=== PATIENT | female | born 1980 | race Caucasian/White ===

== ENCOUNTER 2017-10-08 07:13 | Inpatient (IN) | payer BC ==
[2017-10-08] MEDS ORDERED: Ondansetron INJ* 2 MG/ML VIAL IV ONE (08:10)
[2017-10-08] MEDS ORDERED: Insulin REGULAR(*) 1 UNITS UNIT IV ONE (08:10)
[2017-10-08] MEDS ORDERED: Ketorolac INJ* 30 MG/ML 1 ML VIAL IV PUSH ONE (08:17)
--- NOTE | 2017-10-08 08:17 | ED ---
HPI Diabetic - HPI Summary HPI Summary: This is boo Sanchez documenting for attending Geraldine Barrientos M.D. Patient is a 37 y/o F w/ c/o left sided back/flank pain that radiates to LLQ. Her , Thierry is in the room. Patient is a type 2 diabetic requiring insulin and she also takes metformin. reports patient had high blood sugar but could not find kit to test. He reports patient felt hot and was sweaty. Patient cannot recall last time she checked blood sugar. She has taken 3 doses of 60 units of Lantus insulin (via pen) between midnight and 0500 today. Back pain started a week ago, radiates to left side in front and into back. In the room, pain is rated 10/10. She also reports nausea and vomiting, with one episode of vomiting last night. She did not see color or general appearance of emesis. Patient denies dysuria and hematuria. Last bowel movement was today. She has had cough for "months". Patient is experiencing mid chest pain as well, which is described as a tightening and is on and off. In room, vitals were 107 was pulse, 108/67 BP, and O2 sat 97. Patient is A1, lost baby 6-8 weeks into . On triage, nothing is noted to aggravate/ alleviate Sx. First day of last normal menstrual cycle was September 24. She denies PMHx of kidney stones. PSHx of cholecystectomy w/ PMHx of pancreatitis and black tongue. Patient drinks alcohol. FMHx of diabetes, both types, is noted. Patient is still nauseous, does not have zofran. Patient reports sun allergy. Hx of bronchitis every year for 8-10 years. Patient takes CBD oil for chronic back pain. Home medications are as follows: Acetaminophen [Tylenol] 975 mg PO BID PRN 10/08/17 [History Confirmed 10/08/17] Ibuprofen TAB* [Motrin TAB* 400 MG] 400 mg PO Q6H PRN 10/08/17 [History Confirmed 10/08/17] NIFEdipine [Nifedipine ER] 60 mg PO DAILY 10/08/17 [History Confirmed 10/08/17] Naproxen Sodium [Midol Extended Relief] 220 mg PO DAILY PRN 10/08/17 [History Confirmed 10/08/17] I, Dr. Barrientos, personally performed the services described in this documentation as scribed in my presence and it is both accurate and complete. - History Of Current Complaint Chief Complaint: EDDiabeticProb Time Seen by Provider: 10/08/17 07:52 Hx Obtained From: Patient, Family/Workers Compensation Administrator - partially contributes Hx Last Menstrual Period: just ended yesterday Onset/Duration: Lasting Hours - hot and sweaty today at midnight, Lasting Days - patient reports vomiting one day ago, Lasting Weeks - back pain onset was a week ago; reports having a cough for "months", Still Present - left back pain, nausea Timing: Weeks - one episode of vomiting yesterday; intermittent chest pain; cough for "months", back pain for a week; hot and sweaty today at midnight Severity Initially: Moderate Severity Currently: Severe - 10/10 in room Associated Signs & Symptoms: Nausea, Vomiting - once last night Related History: DM II, Insulin Requiring - Allergies/Home Medications Allergies/Adverse Reactions: Allergies Allergy/AdvReac Type Severity Reaction Status Date / Time SUN Allergy Rash Uncoded 10/08/17 07:18 Home Medications: Home Medications Acetaminophen [Tylenol] 975 mg PO BID PRN 10/08/17 [History Confirmed 10/08/17] Ibuprofen TAB* [Motrin TAB* 400 MG] 400 mg PO Q6H PRN 10/08/17 [History Confirmed 10/08/17] NIFEdipine [Nifedipine ER] 60 mg PO DAILY 10/08/17 [History Confirmed 10/08/17] Naproxen Sodium [Midol Extended Relief] 220 mg PO DAILY PRN 10/08/17 [History Confirmed 10/08/17] PMH/Surg Hx/FS Hx/Imm Hx Endocrine/Hematology History: Reports: Hx Diabetes, Hx Anemia - OK NOW, ANEMIA WHEN YOUNGER R/T PERIODS Denies: Hx Thyroid Disease Cardiovascular History: Reports: Hx Hypertension Denies: Other Cardiovascular Problems/Disorders Respiratory History: Reports: Hx Sleep Apnea - HAVING STUDY Denies: Hx Asthma, Hx Chronic Obstructive Pulmonary Disease (COPD) GI History: Reports: Other GI Disorders - pancreatitis Denies: Hx Ulcer History: Denies: Other Problems/Disorders Sensory History: Reports: Hx Contacts or Glasses - CONTACTS AND GLASSES Denies: Hx Hearing Aid Opthamlomology History: Reports: Hx Contacts or Glasses - CONTACTS AND GLASSES EENT History: Reports: Other - black tongue Neurological History: Reports: Hx Headaches - CLUSTER HEADACHES PER MONTH, Hx Migraine - 1 PER WEEK - Surgical History Surgery Procedure, Year, and Place: 2012 cholecystectomy, [facility] Hx Anesthesia Reactions: No Infectious Disease History: No Infectious Disease History: Denies: Hx Clostridium Difficile, Hx Hepatitis, Hx Human Immunodeficiency Virus (HIV), Hx of Known/Suspected MRSA, Hx Shingles, Hx Tuberculosis, Hx Known/ Suspected VRE, Hx Known/Suspected VRSA, History Other Infectious Disease, Traveled Outside the [place] in Last 30 Days - Family History Known Family History: Positive: Diabetes - both types of diabetes - Social History Lives: With Family Alcohol Use: Occasionally Substance Use Type: Reports: None Smoking Status (MU): Never Smoked Tobacco Review of Systems Positive: Skin Diaphoresis, Other - reports patient felt hot Positive: Chest Pain - on and off Positive: Cough - experienced cough for "months" Positive: Vomiting - once yesterday , Nausea Positive: other - NEGATIVE: dysuria, hematuria, constipation Positive: Other - left sided back pain radiating into back and around to front left side Skin: Negative Neurological: Negative Psychological: Normal All Other Systems Reviewed And Are Negative: Yes Physical Exam - Summary Physical Exam Summary: Appearance: Ill-appearing, moderate pain distress, obese Skin: Warm, color reflects adequate perfusion, dry Head: Normal Head/Face inspection, atraumatic Eyes: Conjunctiva clear ENT: Normal inspection Neck: Supple, no nodes, no JVD Respiratory: Lungs clear, normal breath sounds, no respiratory distress Cardio: RRR, No murmur, pulses normal, brisk capillary refill Abdomen: Soft, tender LLQ, no guarding, no rebound Bowel sounds: Present Musculoskeletal: Strength Intact/ROM intact, no calf tenderness, no edema, tender left flank Psychological: Normal Neuro: Alert, muscle tone normal, no focal deficit Triage Information Reviewed: Yes Vital Signs On Initial Exam: Initial Vitals Temp Pulse Resp BP Pulse Ox 97.2 F 103 20 93/53 97 10/08/17 07:15 10/08/17 07:15 10/08/17 07:15 10/08/17 07:15 10/08/17 07:15 Vital Signs Reviewed: Yes Diagnostics - Vital Signs Vital Signs Temp Pulse Resp BP Pulse Ox 10/08/17 07:26 96 89/66 95 10/08/17 07:25 98 93 10/08/17 07:15 97.2 F 103 20 93/53 97 - Laboratory Lab Results: Lab Results 10/08/17 Range/Units 07:32 POC Glucose (mg/dL) 266 H (70-100) mg/dL Result Diagrams: 10/09/17 08:01 10/09/17 08:01 Lab Statement: Any lab studies that have been ordered have been reviewed, and results considered in the medical decision making process. - Radiology CXR Xray Interpretation: Positive (See Comments) Radiology Interpretation Completed By: Radiologist - PULMONARY VASCULAR CONGESTION. THIS REPORT WAS REVIEWED BY ED PHYSICIAN. - CT CT abd/pel CT Interpretation: Positive (See Comments) CT Interpretation Completed By: Radiologist - IMPRESSION: 1. NO HYDRONEPHROSIS OR NEPHROLITHIASIS. 2. THERE IS A LOBULATED MASS OF THE LEFT HEMIPELVIS MEASURING UP TO 8.6 CM IN SIZE. THE DIFFERENTIAL INCLUDES OVARIAN NEOPLASM. THIS IS INCOMPLETELY CHARACTERIZED WITH NONCONTRAST CT. RECOMMEND FURTHER EVALUATION WITH ULTRASOUND OF THE PELVIS AND/OR CONTRAST-ENHANCED MRI OF THE PELVIS. - Ultrasound No standard instances Ultrasound Interpretation: Positive (See Comments) Ultrasound Interpretation Completed By: Radiologist - transvag/pelvic US IMPRESSION: AGAIN NOTED IS A COMPLEX CYSTIC MASS OF THE LEFT HEMIPELVIS MEASURING UP TO 10.1 CM IN SIZE CORRESPONDING TO THE CT FINDING. THE DIFFERENTIAL STILL INCLUDES LEFT OVARIAN NEOPLASM. RECOMMEND FURTHER EVALUATION WITH CONTRAST-ENHANCED MRI OF THE PELVIS. THIS REPORT WAS REVIEWED BY ED PHYSICIAN. - EKG 0839 Cardiac Rate: NL - Rate of 96 BPM. EKG Rhythm: Sinus Rhythm EKG Interpretation: nl AVIVCT, nl QTC, nl axis, no acute changes EKG Comparison: Other - compared with 12/22/13 EKG, no significant change since previous Re-Evaluation - Re-Evaluation First Eval Re-Evaluation Time: 09:34 Change: Worse Comment: Pt had blood glucose of 312 by FS. No change in status. Will administer insulin [address] pending. Second Eval Re-Evaluation Time: 09:45 Comment: lacatate of 2.4 is noted Third Eval Re-Evaluation Time: 11:20 Change: Unchanged Comment: still with LLQ pain, pt alert, discussed CT results, ovarian mass. Pt states hx ovarian cyst in past, resolved. Pelvic US ordered, morphine for pain. Dr. Delatorre to admit.SEPSIS REASSESSMENT: Skin well perfused, cap refill less than 2 seconds. Leg lift shows good perfusion. BP 107/53, P 93 O2 sat 95% . heart S1S2 lungs clear. Diabetic Course/Dx - Course Assessment/Plan: Patient is a 37 y/o F w/ c/o left sided back pain. Patient is a type 2 diabetic who takes insulin and metformin. , Thierry, reports patient had high blood sugar but could not find kit to test. He reports patient felt hot and was sweaty. Patient cannot recall last time she checked blood sugar. She has taken 3 doses of 60 units of Lantus between midnight and 0500 today. Back pain started a week ago, radiates to left side in front and into back. In the room, pain is rated 10/10. She also reports nausea and vomiting, with one episode of vomiting last night. She did not see appearance of emesis. Patient denies dysuria and hematuria. Last bowel movement was today. She has had cough for "months". Patient is experiencing mid chest pain as well, which is described as a tightening and is on and off. In room, vitals were 107 was pulse, 108/67 BP, and O2 sat 97. Patient is A1, lost baby 6-8 weeks into . First day of last normal menstrual cycle was September 24. She denies PMHx of kidney stones. PSHx of cholecystectomy w/ PMHx of pancreatitis and black tongue. Patient drinks alcohol. FMHx of diabetes, both types, is noted. Patient is still nauseous, does not have zofran. CXR, Ct abd/pel, and US transvag/abdomen impressions are listed above. Pt was started on sepsis protocol with return results of wbc and lactate, with IV fluids to total 30cc/kg , after initial 2 L NS given for hyperglycemia. Pt given zosyn 3.375g for poss intraabdominal source. Urine revealed wbc's and rbc's but neg nitrates and bacteria absent. Pt is afebrile in the ED. Pt is dx'd with sepsis, diabetes in poor control, left flank and LLQ abd pain, pelvic mass. Labs showed wbc 25K, initial lactate 2.4, glucose 312. CT and US show pelvic mass. Pt is admitted to Dr. Warner. - Diagnoses Differential Dx: Diabetic Ketoacidosis, Hyperglycemia, Sepsis Provider Diagnoses: Sepsis, Poorly controlled diabetes mellitus, Elevated lactic acid level, Pelvic mass in female - Physician Notifications Discussed Care Of Patient With: Josiane Warner Time Discussed With Above Provider: 09:43 Instructed by Provider To: Other - Dr. Warner was consulted at 09 on patient' s case with identification of sepsis. She recommends waiting on CT results before making a decision regarding ICU vs floor. 11:13 -- discussed case with Dr. Warner. She will order US for patient and accepts patient for admission. - Critical Care Time Critical Care Time: 30-74 min - 30 mins, evaluation of DM with hyperglycemia, sepsis Discharge - Sign-Out/Discharge Documenting (check all that apply): Patient Departure - admit - Discharge Plan Condition: Stable Disposition: ADMITTED TO [facility] - Billing Disposition and Condition Condition: STABLE Disposition: Admitted to [facility]
[2017-10-08 08:39] LABS: Hematocrit 37 % (35-47); Hemoglobin 12.4 g/dl (12.0-16.0); Mean Corpuscular HGB Conc 33 g/dl (31-36); Mean Corpuscular Hemoglobin 29 pg (27-31); Mean Corpuscular Volume 87 fL (80-97); Mean Platelet Volume 7.4 um3 (7.4-10.4); Platelet Count 420 10^3/ul (150-450); Red Blood Count 4.24 10^6/ul (4.00-5.40); Red Cell Distribution Width 13 % (10.5-15)
[2017-10-08] MEDS: NS 0.9% 1000 ML* 2,000 ML IV ONE (08:42)
[2017-10-08 08:56] LABS: INR 1.2 (0.77-1.02)
[2017-10-08 08:58] LABS: Urine Appearance Cloudy; Urine Blood Negative (Negative); Urine Color Amber; Urine Ketones Negative (Negative); Urine Protein 2+(100 mg/dL) (Negative); Urine Red Blood Cell 1+(3-5/hpf) (Absent); Urine Specific Gravity 1.035 (1.010-1.030); Urine Urobilinogen Positive (Negative); Urine White Blood Cell 3+(>20/hpf) (Absent)
[2017-10-08 09:01] LABS: EGFR Non-African American 69.2 (>60)
[2017-10-08 09:11] LABS: ABS Basophils 0 10^3/ul (0-0.2); Monocytes % 1 % (0-7)
[2017-10-08 09:14] LABS: ABS Neutrophils 24.1 10^3/ul (1.5-7.7)
--- NOTE | 2017-10-08 09:20 | RAD ---
HISTORY: DM, cough COMPARISONS: October 19, 2011 VIEWS: 1: frontal portable view of the chest at 9:00 AM FINDINGS: LINES AND TUBES: None. CARDIOMEDIASTINAL SILHOUETTE: The cardiomediastinal silhouette is normal for portable technique. PLEURA: The costophrenic angles are sharp. No pleural abnormalities are noted. LUNG PARENCHYMA: There is prominence of the central pulmonary vasculature. ABDOMEN: The upper abdomen is clear. There is no subphrenic gas. BONES AND SOFT TISSUES: No bone or soft tissue abnormalities are noted. IMPRESSION: PULMONARY VASCULAR CONGESTION
[2017-10-08] MEDS ORDERED: Insulin REGULAR(*) 1 UNITS UNIT IV PUSH ONE (09:32)
[2017-10-08] MEDS ORDERED: Morphine INJ* 2 MG/ML 1 ML SYRINGE (TWO MG - NEW SYRINGE VERSION) IV ONE (09:34)
[2017-10-08] MEDS ORDERED: Morphine VIAL* 10 MG/ML 1 ML VIAL ONE (09:38)
[2017-10-08] MEDS ORDERED: Piperacillin/Tazobac ADVAN(*) 3.375 GM in NS 0.9% 100 ML* 100 ML IVPB ONE (09:47)
[2017-10-08] MEDS ORDERED: NS 0.9% 1000 ML*IV.FLUID IV ONE (09:47)
--- NOTE | 2017-10-08 10:26 | RAD ---
CLINICAL HISTORY: left flank COMPARISON: October 19, 2011 TECHNIQUE: Multiple contiguous axial CT scans were obtained of the abdomen and pelvis, without intravenous contrast enhancement. Coronal and sagittal multiplanar reformations are submitted for review. Oral contrast was not administered. FINDINGS: The study is limited by the lack of intravenous contrast. This limits evaluation of the solid organs and vasculature. LUNG BASES: The lung bases are clear. LIVER: The liver is normal in shape, size, contour, and attenuation. BILE DUCTS: There is no intrahepatic or extrahepatic biliary dilatation. GALLBLADDER: The gallbladder is not visualized. Surgical clips are noted in the gallbladder fossa. PANCREAS: The pancreas is normal, without mass or ductal dilatation. SPLEEN: Normal in size and appearance. UPPER GI TRACT: Evaluation of the gastrointestinal tract is limited by incomplete gastric distention. The upper GI tract is unremarkable. SMALL BOWEL AND MESENTERY: The small bowel is normal in contour, course, and caliber. There is no obstruction or dilatation. COLON: The colon is normal in contour, course, caliber. There is no pericolonic inflammatory change. ADRENALS: Normal bilaterally. KIDNEYS: There is a simple cyst of the lower pole of the right kidney. There is no appreciable hydronephrosis or nephrolithiasis. BLADDER: The bladder is collapsed and is not well evaluated. PELVIC ORGANS: There is lobulated mass of the left hemipelvis measuring 8.6 x 7.5 x 8.4 cm in size. AORTA: The aorta is normal. IVC: Unremarkable LYMPH NODES: There is no lymphadenopathy by size criteria. ABDOMINAL WALL: There is no evidence for abdominal wall hernia. BONES AND SOFT TISSUES: Unremarkable OTHER: None IMPRESSION: 1. NO HYDRONEPHROSIS OR NEPHROLITHIASIS. 2. THERE IS A LOBULATED MASS OF THE LEFT HEMIPELVIS MEASURING UP TO 8.6 CM IN SIZE. THE DIFFERENTIAL INCLUDES OVARIAN NEOPLASM. THIS IS INCOMPLETELY CHARACTERIZED WITH NONCONTRAST CT. RECOMMEND FURTHER EVALUATION WITH ULTRASOUND OF THE PELVIS AND/OR CONTRAST-ENHANCED MRI OF THE PELVIS.
[2017-10-08] MEDS ORDERED: HYDROmorphone INJ* 2 MG/ML CARPUJECT SYRINGE IV SLOW PU ONE (11:36)
[2017-10-08] MEDS ORDERED: Morphine VIAL* 10 MG/ML 1 ML VIAL IV PRN (11:41)
[2017-10-08] MEDS ORDERED: HYDROmorphone INJ* 2 MG/ML CARPUJECT SYRINGE IV SLOW PU PRN (11:41)
[2017-10-08] MEDS ORDERED: Dextrose 50% Syringe 50 ML* 25 GM/50 ML SYRINGE IV PUSH PRN (11:45)
[2017-10-08] MEDS ORDERED: Magnesium Sulf 4 GM/100 ML IV* 4,000 MG/100 ML BAG IVPB ONE (11:50)
[2017-10-08] MEDS ORDERED: NS 0.9% 1000 ML* 1,000 ML IV SCH (12:00)
--- NOTE | 2017-10-08 12:34 | RAD ---
HISTORY: left pain, f/u ovarian mass on CT today COMPARISONS: Noncontrast CT dated October 11, 2017 TECHNIQUE: Multiple transverse and longitudinal ultrasound images were obtained of the pelvis using grayscale, color Doppler, and spectral Doppler imaging using the transabdominal transducer. FINDINGS: UTERUS: The uterus measures 10.6 x 4.9 x 4.7 cm. The uterus is normal in shape, size, contour, and echotexture. ENDOMETRIUM: The endometrial stripe is smooth. The endometrium measures 0.9 cm in thickness. CUL-DE-SAC: There is no free fluid within the cul-de-sac. RIGHT OVARY: The right ovary measures 3.8 x 3.2 x 2.4 cm. Normal arterial and venous waveforms are identifiable within the ovary on spectral Doppler imaging. LEFT OVARY: The left ovary measures 10.1 x 7.5 x 7.5 cm. Again noted is a complex cystic lesion of the left hemipelvis corresponding to the CT finding that appears to correspond to the left ovary. Normal arterial and venous waveforms are identifiable within the ovary on spectral Doppler imaging. BLADDER: The bladder is not well visualized. OTHER: None IMPRESSION: AGAIN NOTED IS A COMPLEX CYSTIC MASS OF THE LEFT HEMIPELVIS MEASURING UP TO 10.1 CM IN SIZE CORRESPONDING TO THE CT FINDING. THE DIFFERENTIAL STILL INCLUDES LEFT OVARIAN NEOPLASM. RECOMMEND FURTHER EVALUATION WITH CONTRAST-ENHANCED MRI OF THE PELVIS.
[2017-10-08] MEDS ORDERED: Perflutren Lipid Microsphere* 3 ML VIAL ONE (15:47)
[2017-10-08] MEDS ORDERED: Acetaminophen TAB* 325 MG ONE (16:23)
[2017-10-08] MEDS: Acetaminophen TAB* 325 MG PO PRN ×2 (16:25→23:32)
[2017-10-08] MEDS: HYDROmorphone INJ* 0.5 MG/0.5 ML SYRINGE IV SLOW PU PRN ×2 (16:26→21:15)
[2017-10-08] MEDS: Heparin VIAL(*) 5000 UNITS/ML VIAL (FIVE THOUSAND) SUBCUT SCH ×2 (16:30→21:22)
--- NOTE | 2017-10-08 17:37 | ECHO ---
Patient: FÁTIMA FOX [facility] Rec#: [id number] : 1980 Date: 10/08/2017 Age: 37y Height: 185 cm / 72.8 in Weight: 161 kg / 354.8 lbs Sex: F BSA: 2.7 Room#: [facility] Admit Date#: 10/08/2017 Type: Inpatient Referring: Dominga Wilkerson NP Reading: Jc Everett MD [place] Cutter: Christine Kenyon RN RDCS CC: Chris Queen NP Transthoracic Echocardiogram Indication: CHF, SOB BP: 112/72 HR: 101 Rhythm: Tachycardia Findings History: HTN, DM, sleep apnea, migraines, anemia, morbid obesity. Technical Comments: The study is technically limited due to patient body habitus. Left Ventricle: The left ventricular chamber size is normal. Mild to moderate concentric left ventricular hypertrophy is observed. Global left ventricular wall motion and contractility are within normal limits. Left ventricular systolic function is at the lower limits of normal. The estimated ejection fraction is 50-55%. Normal left ventricular diastolic filling is observed. Left Atrium: The left atrial chamber size is normal. Right Ventricle: The right ventricle is slightly dilated. The right ventricular global systolic function is mildly reduced. Right Atrium: The right atrial cavity size is normal. Aortic Valve: The aortic valve structure is not well visualized. There is no evidence of aortic valve thickening. There is no evidence of aortic regurgitation. There is no evidence of aortic stenosis. Mitral Valve: The mitral valve leaflets are mildly thickened. There is mild mitral regurgitation. There is no evidence of mitral stenosis. Tricuspid Valve: The tricuspid valve leaflets are normal. There is trace tricuspid regurgitation. Unable to estimate the right ventricular systolic pressure. There is no tricuspid stenosis. Pulmonic Valve: The pulmonic valve structure is not well visualized. There is no evidence of pulmonic regurgitation. There is no pulmonic stenosis. Pericardium: There is no significant pericardial effusion. A pericardial fat pad is visualized. Aorta: There is mild dilatation of the ascending aorta. There is no dilatation of the aortic arch. There is mild dilatation of the aortic root. Pulmonary Artery: The main pulmonary artery appears normal. Venous: The venous system is not well visualized. The inferior vena cava is not visualized. Contrast: Definity was used to optimize study. A total of 3 ml of diluted Definity was given IV. Summary: There was not any prior study for comparison. Conclusions Left ventricular systolic function is at the lower limits of normal. Global left ventricular wall motion and contractility are within normal limits. The estimated ejection fraction is 50-55%. There is no evidence of aortic stenosis. There is mild mitral regurgitation. There is trace tricuspid regurgitation. Unable to estimate the right ventricular systolic pressure. There is no significant pericardial effusion. Measurements Name Value Normal Range RVIDd (AP) 2D 3.5 cm (0.9 - 2.6) RVDdMajor (2D) 3.9 cm (2.2 - 4.4) RAd ISD 4CH 4.3 cm (3.4 - 4.9) RA (A4C)W 4.3 cm (2.9 - 4.6) IVSd (2D) 1.4 cm (0.6 - 1) LVPWd (2D) 1.2 cm (0.6 - 1) LVIDd (2D) 5.3 cm (3.6 - 5.4) LVIDs (2D) 3.9 cm - LV FS (2D) 26 % (25 - 45) Aortic Annulus 2.4 cm (1.4 - 2.6) Ao root diameter (2D) 3.8 cm (2.1 - 3.5) Ascending Ao 3.5 cm (2.1 - 3.4) Aortic arch 3 cm (1.8 - 3.4) LA dimension (AP) 2D 3.7 cm (2.3 - 3.8) LAd ISD 4CH 5.1 cm (2.9 - 5.3) LA ISD 4CH W 3.8 cm (2.5 - 4.5) Name Value Normal Range LA ESV BP (A/L) index 18.4 ml/m2 - Name Value Normal Range MV E-wave Vmax 1.1 m/sec - MV deceleration time 218 msec - MV A-wave Vmax 0.88 m/sec - MV E:A ratio 1.3 ratio - LV septal e' Vmax 0.13 m/sec - LV lateral e' Vmax 0.14 m/sec - LV E:e' septal ratio 8.5 ratio - LV E:e' lateral ratio 7.9 ratio - Name Value Normal Range AV Vmax 1.5 m/sec - AV VTI 24.9 cm - AV peak gradient 9 mmHg - AV mean gradient 6 mmHg - LVOT Vmax 1 m/sec - LVOT VTI 18.7 cm - LVOT peak gradient 4 mmHg - LVOT mean gradient 2 mmHg - JADON Vmax 0.98 m/sec - Name Value Normal Range PV Vmax 1 m/sec -
[2017-10-08] MEDS ORDERED: Furosemide IV* 10 MG/ML 2 ML VIAL (20 MG) IV ONE (17:47)
[2017-10-08] MEDS: Insulin LISPRO* 1 UNITS UNIT SUBCUT SCH (18:16)
[2017-10-08] MEDS: Ciprofloxacin 400MG IVPREMIX(* 400 MG/200 ML BAG IVPB SCH (18:18)
--- NOTE | 2017-10-08 19:06 | HP ---
CC: Chris Queen NP* [facility] MEDICINE HISTORY AND PHYSICAL: DATE OF ADMISSION: 10/08/17 PRIMARY CARE PROVIDER: Chris Queen NP ATTENDING PHYSICIAN: Dr. Josiane José* (dictation provided by Dominga Wilkerson NP) . CHIEF COMPLAINT: Left flank pain, malaise, and chills. HISTORY OF PRESENT ILLNESS: Ms. Jovel is a 37-year-old female with a past medical history of type 2 diabetes, on insulin, as well as hypertension, who presents to the hospital today with concern for left flank pain, chills, and malaise. Ms. Jovel states that she has had some discomfort in her left side that was very mild for some time. She is not able to really characterize that for me further. She states that yesterday she suddenly began feeling very unwell. She had chills. She was shaking. She spent the entire day in the bed. Late in the evening, she developed severe left flank pain. She states this is much more severe than any pain that she had had there in the past. She had pain through the evening and this morning when she awoke. She reports that she has had no real dysuria, although she has had some feeling of pressure in her bladder. She thinks she may have been had increased frequency, but nothing significant. She is up to date with Pap smears. Her last menstrual period was September 24. She has irregular and heavy periods with severe cramping throughout her life but does not have a diagnosis of PCOS. She has a history of 1 with miscarriage. In the emergency room, Ms. Jovel had labs, which showed a white blood cell count of 25 with bands of 14. She had glucose of 257, lactic acid of 2.4, magnesium 1.3, and C-reactive protein 113.65. She is afebrile. She is mildly tachycardic with the heart rate running about 100, blood pressure is 110/71. She does report feeling somewhat short of breath at rest and she states that this started yesterday when she would feel shaky and chilled. She would feel like it was difficult for her to breathe. She is not hypoxic. In addition, the patient had urinalysis which is suspicious for urinary tract infection and CT abdomen and pelvis which showed concern for a lobulated mass to the left hemipelvis with possible ovarian neoplasm. PAST MEDICAL/SURGICAL HISTORY: 1. Type 2 diabetes, on insulin. 2. Hypertension. 3. History of gallstone pancreatitis, status post cholecystectomy. MEDICATIONS: 1. Tylenol 975 mg p.o. b.i.d. p.r.n. 2. Ibuprofen 400 mg p.o. q.6 hours p.r.n. 3. Lantus SoloSTAR 50 units subcutaneously at bedtime. 4. Metformin 1000 mg p.o. b.i.d. 5. Naproxen 220 mg p.o. daily p.r.n. 6. Nifedipine 60 mg p.o. daily. ALLERGIES: No known drug allergies. FAMILY HISTORY: The patient states her mother is alive and has type 2 diabetes. Her dad related to bone cancer and had type 1 diabetes. SOCIAL HISTORY: No report of tobacco or alcohol use. The patient has tested positive for cannabis in the emergency room. She states that her , Thierry would be her healthcare proxy. REVIEW OF SYSTEMS: A 14-point review of systems was completed with Ms. Jovel and all of those not mentioned above were negative. PHYSICAL EXAMINATION GENERAL: Ms. Jovel is lying in the bed. She is in no acute distress. Her is at the bedside. VITAL SIGNS: Temperature 97.2, pulse rate 102, respiratory rate 29, O2 saturation 91% on room air, blood pressure 110/71. LUNGS: Clear with no accessory muscle use and good aeration. HEART: S1 and S2. No murmur, rub, or gallop and regular. ABDOMEN: Soft. She is not tender to palpation. EXTREMITIES: No cyanosis or edema. NEUROLOGIC: She is alert. She is oriented x3. She moves all extremities equally. There is no facial asymmetry or focal weakness. Extraocular movements are intact. SKIN: Intact. DIAGNOSTIC STUDIES/LAB DATA: Sodium 135, potassium 3.5, chloride 99, serum bicarbonate 28, BUN 8, creatinine 0.91, glucose 257, lactic acid 2.4, magnesium 1.3, CRP 113.65. Beta hCG is less than 60. WBC 25.0, hemoglobin 12.4, hematocrit 37, platelet count 420, and bands are 14. The patient did have ABG, which showed pH 7.42, PCO2 of 44, PO2 of 39. Her urine shows 2+ leukocyte esterase and 3+ wbc's, no bacteria, no nitrites. Her chest x-ray shows possible concern for a pulmonary vascular congestion with some fullness noted there. The abdomen and pelvis CT shows "there is no hydronephrosis or nephrolithiasis. There is lobulated mass to the left hemipelvis measuring up to 8.6 cm in size. The differential includes ovarian neoplasm and pelvic ultrasound noncontrast enhanced or contrast enhanced MRI of the pelvis is recommended. ASSESSMENT AND PLAN: Ms. Jovel is a 37-year-old female with past medical history of type 2 diabetes and hypertension, who presents to the hospital today with concern for left flank pain, fever, chills, and malaise found to have likely urinary tract infection, but also concerned for a lobulated mass in the left hemipelvis. Our plans are for inpatient admission as expected length of stay would be greater than 2 days for followin. Sepsis with urinary tract infection: The patient has tachycardia and leukocytosis, which qualifies for sepsis. She has a positive urinanalysis though I note that there are no bacteria in her urine, only leuk esterase and WBC. She has a feeling a pressure but no clear dysuria. Her first lactic acid was 2.4, a repeat is pending. She has had blood cultures drawn. Zosyn was started for antibiotic coverage, but I plan to switch over to ciprofloxacin IV. The patient was given almost 7000 mL of IV fluids in the emergency department for sepsis. We will continue with a rate of 75 mL per hour and monitor her breathing status closely. 2. Lobulated mass: This appears to be a ovarian cyst but may be a malignancy. The pelvic ultrasound is underway at this time. We will follow up on results and discuss with the unit educator when these results are available. 3. Type 2 diabetes: The patient will continue on her home Lantus. She states her blood sugar was uncontrolled at home. We will have lispro sliding scale with meals and adjust that as needed based on clinical course. Right now, she is NPO, but will go on for consistent carbohydrate diet when her testing is complete. 4. Hypertension: The patient's blood pressure is running about 110 systolically. I plan to hold nifedipine in the setting of acute illness and resume when blood pressure has stabilized. 5. Code status is full code. 6. Disposition to medical floor. TIME SPENT: Approximately 60 minutes was spent on the admission of this patient , more than half time spent with the patient at the bedside reviewing the events leading up to this hospitalization, performing the physical examination, and reviewing my plan of care. DOMINGA WILKERSON NP [id number]/CPS #: [id number] MTDLoraine
[2017-10-08] MEDS: Morphine INJ* 2 MG/ML 1 ML SYRINGE (TWO MG - NEW SYRINGE VERSION) IV PRN ×2 (19:29→23:32)
[2017-10-08] MEDS ORDERED: Iodixanol* (CONTRAST) 320 MG/ML 100 ML SDV IV SCH (20:16)
--- NOTE | 2017-10-08 21:18 | RAD ---
EXAM: CT Angiography Chest With Intravenous Contrast CLINICAL HISTORY: 37 years old, female; Signs and symptoms; Shortness of breath; Additional info: R/O pe TECHNIQUE: Axial computed tomographic angiography images of the chest with intravenous contrast using pulmonary embolism protocol. 3D and MIP reconstructed images were created and reviewed. Coronal and sagittal reformatted images were created and reviewed. COMPARISON: No relevant prior studies available. FINDINGS: Pulmonary arteries: The exam is slightly limited due to suboptimal opacification of the pulmonary arteries. No intraluminal filling defect or pulmonary embolism is seen. Aorta: No acute findings. No thoracic aortic aneurysm or dissection. Lungs: Unremarkable. No mass. No consolidation. Pleural space: Unremarkable. No significant effusion. No pneumothorax. Heart: Unremarkable. No cardiomegaly. No significant pericardial effusion. No evidence of RV dysfunction. Bones/joints: No acute fracture. No dislocation. Soft tissues: Unremarkable. Lymph nodes: Unremarkable. No enlarged lymph nodes. Liver: Area of inhomogeneous enhancement of the liver on the final image of the axial series is of uncertain significance. The results of this exam were called to Dr. Ravi. IMPRESSION: 1. Limited study, no evidence for pulmonary embolism. 2. Questionable liver abnormality incompletely evaluated on this study. Recommend further evaluation with an MRI of the liver without and with contrast.
[2017-10-08] MEDS: Insulin GLARGINE(*) 1 UNITS UNIT SUBCUT SCH (21:21)
--- NOTE | 2017-10-09 00:15 | PN ---
Progress Note - Progress Note Date of Service: 10/09/17 Note: Paged for concern for clinical status. Patient with my abdominal pain. C/O low back pain and now chest pressure. Appears sedated but ill appearing. diminished breath sounds. Hypoactive bowel sounds. Tenderness with palpation in lower abdomen. Will check labs, CXR, abd xray and EKG. Vitals WNL, febrile currently.
[2017-10-09 01:29] LABS: ABS Basophils 0.1 10^3/ul (0-0.2); ABS Eosinophils 0 10^3/ul (0-0.6); ABS Lymphocytes 0.8 10^3/ul (1.0-4.8); ABS Monocytes 0.8 10^3/ul (0-0.8); ABS Neutrophils 13.4 10^3/ul (1.5-7.7); ABS Nucleated RBC 0 10^3/ul; Eosinophil % 0.1 % (0-6); Hematocrit 35 % (35-47); Hemoglobin 11.7 g/dl (12.0-16.0); Mean Corpuscular HGB Conc 34 g/dl (31-36); Mean Corpuscular Hemoglobin 29 pg (27-31); Mean Corpuscular Volume 88 fL (80-97); Mean Platelet Volume 7.2 um3 (7.4-10.4); Nucleated Red Blood Cells % 0; Platelet Count 337 10^3/ul (150-450); Red Blood Count 3.97 10^6/ul (4.00-5.40); Red Cell Distribution Width 14 % (10.5-15); White Blood Count 15.1 10^3/ul (3.5-10.8)
[2017-10-09 01:46] LABS: EGFR Non-African American 100.2 (>60)
[2017-10-09] MEDS: HYDROmorphone INJ* 0.5 MG/0.5 ML SYRINGE IV SLOW PU PRN ×4 (02:48→21:06)
[2017-10-09] MEDS: Ibuprofen TAB* 600 MG PO PRN ×3 (03:11→20:12)
[2017-10-09] MEDS ORDERED: Furosemide IV* 10 MG/ML VIAL (40 MG) IV ONE (04:09)
[2017-10-09] MEDS ORDERED: Furosemide IV* 10 MG/ML VIAL (40 MG) ONE (04:19)
[2017-10-09] MEDS: Ciprofloxacin 400MG IVPREMIX(* 400 MG/200 ML BAG IVPB SCH (05:17)
[2017-10-09] MEDS: Acetaminophen TAB* 325 MG PO PRN ×2 (05:25→21:02)
[2017-10-09] MEDS: Morphine INJ* 2 MG/ML 1 ML SYRINGE (TWO MG - NEW SYRINGE VERSION) IV PRN ×4 (05:57→23:46)
[2017-10-09] MEDS: Heparin VIAL(*) 5000 UNITS/ML VIAL (FIVE THOUSAND) SUBCUT SCH ×3 (05:57→22:55)
[2017-10-09] MEDS ORDERED: nitroGLYCERIN DRIP* 25,000 MCG/250 ML BTL ONE (06:22)
[2017-10-09] MEDS ORDERED: Vancomycin(*) 1,500 MG in NS 0.9% 250 ML* 250 ML IVPB ONE (06:45)
[2017-10-09] MEDS ORDERED: nitroGLYCERIN DRIP* 25,000 MCG/250 ML BTL IV SCH (07:00)
--- NOTE | 2017-10-09 07:46 | RAD ---
HISTORY: abdominal pain COMPARISONS: None VIEWS: Frontal views of the abdomen. FINDINGS: BOWEL: There is a nonspecific bowel gas pattern, with nondilated small bowel gas noted. CALCULI: There are no abnormal calculi. BONES AND SOFT TISSUES: There are no osseous abnormalities. OTHER FINDINGS: The lung bases are clear. There is no subphrenic gas. Contrast is noted within the bladder. IMPRESSION: NONSPECIFIC BOWEL GAS PATTERN.
--- NOTE | 2017-10-09 07:47 | RAD ---
Indication: Abdominal pain. Chest pressure. Sepsis. Comparison: October 08, 2017 CT. Technique: Supine AP 0056 hours Report: Low lung volumes compared with the prior exams with associated crowding of the pulmonary markings and subsegmental atelectasis. Accounting for the low lung volumes is no compelling alveolar consolidation to favor pneumonia. Grossly clear pleural spaces. Upper normal heart size. Unremarkable central pulmonary vasculature and mediastinal contours accounting for low lung volumes. IMPRESSION: #. Hypoventilated exam with subsegmental atelectasis.
[2017-10-09 08:12] LABS: Hematocrit 35 % (35-47); Hemoglobin 12.1 g/dl (12.0-16.0); Mean Corpuscular HGB Conc 34 g/dl (31-36); Mean Corpuscular Hemoglobin 29 pg (27-31); Mean Corpuscular Volume 86 fL (80-97); Mean Platelet Volume 7.4 um3 (7.4-10.4); Platelet Count 346 10^3/ul (150-450); Red Blood Count 4.12 10^6/ul (4.00-5.40); Red Cell Distribution Width 14 % (10.5-15); White Blood Count 15.9 10^3/ul (3.5-10.8)
[2017-10-09 08:31] LABS: EGFR Non-African American 107.7 (>60)
[2017-10-09 08:34] LABS: ABS Basophils 0.1 10^3/ul (0-0.2); ABS Eosinophils 0 10^3/ul (0-0.6); ABS Lymphocytes 0.8 10^3/ul (1.0-4.8); ABS Monocytes 0.6 10^3/ul (0-0.8); ABS Neutrophils 14.4 10^3/ul (1.5-7.7); ABS Nucleated RBC 0 10^3/ul; Eosinophil % 0 % (0-6); Nucleated Red Blood Cells % 0.1
[2017-10-09] MEDS: Insulin LISPRO* 1 UNITS UNIT SUBCUT SCH ×3 (09:47→18:10)
[2017-10-09] MEDS: KCL 20 MEQ/100 ML IVPREMIX* 20 MEQ/100 ML BAG IV SCH ×2 (09:47→12:06)
--- NOTE | 2017-10-09 11:44 | CONSULT ---
Consult Consult: Consultation Note Critical Care Requesting Physician: Dr Yaritza Eckert Reason for consult: hypoxia, respiratory distress, sepsis Limitations in history/physical: none Date of consult: 10/09/2017 HPI: 37y F w/pmhx of DM2, HTN; comes to ER 10/08 for back pain and abdominal pain , diaphoretic+, associated with nausea/vomiting+. She was initially found to have sepsis, suspected urinary source, started on zosyn, then Cipro for coverage. Imaging of abdomen revealed a left ovarian cystic mass on CT scan. A CTA of chest was done indicating no PE, some question of enhancing lesion in liver. A TTE demonstrated normal LV function but some RV hypokinesis. While on medical floor overnight she developed respiratory distress, suspected to be from volume overload, given Lasix, transferred to ICU for hiflow. She was hypertensive during the distress. Currently she is in ICU, on NIV, comfortable, able to speak. Nausea+, no sob/cp now. No headaches. Tmax 104, with ice packs now and decreasing temp slowly. Abd pain+, back pain+. ROS: negative except for pertinent positives mentioned above. PMHx: DM, anemia, HTN, h/o pancreatitis, h/o cluster headaches/migraines PSHx: cholecystectomy Family History: DM in family Social History: Alcohol-occassionally, Smoking-none, Drug use-none Allergies: Allergies Allergy/AdvReac Type Severity Reaction Status Date / Time SUN Allergy Rash Uncoded 10/08/17 07:18 Home Medications: Lantus Solostar 50 units SUBCUT BEDTIME 12/22/13 [History Confirmed 10/08/17] Metformin HCl ER 1,000 mg PO BID 12/22/13 [History Confirmed 10/08/17] Acetaminophen [Tylenol] 975 mg PO BID PRN 10/08/17 [History Confirmed 10/08/17] Ibuprofen TAB* [Motrin TAB* 400 MG] 400 mg PO Q6H PRN 10/08/17 [History Confirmed 10/08/17] NIFEdipine [Nifedipine ER] 60 mg PO DAILY 10/08/17 [History Confirmed 10/08/17] Naproxen Sodium [Midol Extended Relief] 220 mg PO DAILY PRN 10/08/17 [History Confirmed 10/08/17] Tele: sinus tachy Vitals: Vital Signs Temp 101.8 F 10/09/17 10:01 Pulse 111 10/09/17 10:01 Resp 31 10/09/17 10:01 BP 120/71 10/09/17 10:01 Pulse Ox 97 10/09/17 10:01 Intake & Output 10/08/17 10/09/17 10/09/17 18:59 06:59 18:59 Intake Total 2410 900 Output Total 650 240 Balance 2410 250 -240 Weight 161.025 kg 164 kg Intake: IV Fluids 2100 IVPB 100 200 ABX - CIPROFLOXACIN 200 Mag 100 Oral 210 700 Output: Urine 0 Stark 650 240 Other: Estimated Void Large # Bowel Movements 0 # Voids 1 O2/Vent: NIV 10/5, 40% Infusions: heplock Current Medications: Acetaminophen (Tylenol Tab*) 650 mg PO Q6H PRN PRN Reason: pain/fever Last Admin: 10/09/17 05:25 Dose: 650 mg Dextrose (D50w Syringe 50 Ml*) 12.5 gm IV PUSH .FOR FS < 60 - SS PRN PRN Reason: FS < 60 Heparin Sodium (Porcine) (Heparin Vial(*)) 5,000 units SUBCUT Q8HR [facility] Last Admin: 10/09/17 05:57 Dose: 5,000 units Hydromorphone HCl (Dilaudid Inj*) 1 mg IV SLOW PU Q4H PRN PRN Reason: PAIN Last Admin: 10/09/17 02:48 Dose: 1 mg Ciprofloxacin/Dextrose (Cipro 400 Mg Ivpremix(*)) 400 mg in 200 mls @ 200 mls/ hr IVPB Q12H [facility] Last Admin: 10/09/17 05:17 Dose: 200 mls/hr Nitroglycerin/Dextrose (Nitroglycerin Drip*) 25,000 mcg in 250 mls @ 3 mls/hr IV .(Initial Rate) [facility]; Protocol Last Admin: 10/09/17 06:23 Dose: 3 mls/hr Potassium Chloride (Potassium Chloride 20 Meq/100 Ml Ivpremix*) 20 meq in 100 mls @ 50 mls/hr IV Q2H [facility] Stop: 10/09/17 12:59 Last Admin: 10/09/17 09:47 Dose: 50 mls/hr Ibuprofen (Motrin Tab*) 600 mg PO Q6H PRN PRN Reason: PAIN Last Admin: 10/09/17 09:20 Dose: 600 mg Insulin Glargine (Lantus(*)) 50 units SUBCUT BEDTIME KRISTEN Last Admin: 10/08/17 21:21 Dose: 50 units Insulin Human Lispro (Humalog*) 0 units SUBCUT AC KRISTEN; Protocol Last Admin: 10/09/17 09:47 Dose: Not Given Iodixanol (Visipaque* 320 (Contrast)) 96 ml IV ONCE KRISTEN Stop: 10/10/17 20:15 Morphine Sulfate (Morphine Inj ((Syringe))*) 4 mg IV Q4H PRN PRN Reason: PAIN Last Admin: 10/09/17 08:51 Dose: 4 mg Physical Exam: General: awake, alert, no distress, no diaphoresis, obese Head: normocephalic, atraumatic HEENT: no pallor, no icterus, moist mucous membranes Neck: soft, supple, no jvd, no stridor CVS: tachy, regular, no murmur Resp: bilateral air entry, no rhales, no wheeze, no rhonchi, no acc muscle use Abdomen: soft, mild tenderness on deep palpation, nondistended, bowel sounds present Ext: pulses+, warm, no edema Skin: intact, no breakdown, no dryness Neuro: awake, alert, orientedx3, moving all extremities, no gross focal deficit Labs: Laboratory Results - last 24 hr 10/08/17 10/08/17 10/08/17 08:31 08:31 11:50 WBC RBC Hgb Hct MCV MCH MCHC RDW Plt Count MPV Neut % (Auto) Lymph % (Auto) Williams % (Auto) Eos % (Auto) Baso % (Auto) Absolute Neuts (auto) Absolute Lymphs (auto) Absolute Monos (auto) Absolute Eos (auto) Absolute Basos (auto) Absolute Nucleated RBC Nucleated RBC % ESR 109 H D-Dimer, Quantitative Patient Temperature ABG pH ABG pH (Temp Correct) ABG pCO2 ABG pCO2 (Temp Corrct ABG pO2 ABG pO2 (Temp Correct ABG HCO3 ABG O2 Saturation ABG Base Excess Respiration Rate O2 Delivery Device Ventilator Type Vent Mode FiO2 Inspiratory Time PEEP Pressure Support Pressure Control EPAP IPAP BiPAP Sodium Potassium Chloride Carbon Dioxide Anion Gap BUN Creatinine Est GFR ( Amer) Est GFR (Non-Af Amer) BUN/Creatinine Ratio Glucose POC Glucose (mg/dL) 301 H Lactic Acid Calcium Total Bilirubin AST ALT Alkaline Phosphatase Troponin I Total Protein Albumin Globulin Albumin/Globulin Ratio CA 125 Antigen 25.6 10/08/17 10/08/17 10/08/17 12:14 16:35 18:15 WBC RBC Hgb Hct MCV MCH MCHC RDW Plt Count MPV Neut % (Auto) Lymph % (Auto) Williams % (Auto) Eos % (Auto) Baso % (Auto) Absolute Neuts (auto) Absolute Lymphs (auto) Absolute Monos (auto) Absolute Eos (auto) Absolute Basos (auto) Absolute Nucleated RBC Nucleated RBC % ESR D-Dimer, Quantitative 612 H Patient Temperature ABG pH ABG pH (Temp Correct) ABG pCO2 ABG pCO2 (Temp Corrct ABG pO2 ABG pO2 (Temp Correct ABG HCO3 ABG O2 Saturation ABG Base Excess Respiration Rate O2 Delivery Device Ventilator Type Vent Mode FiO2 Inspiratory Time PEEP Pressure Support Pressure Control EPAP IPAP BiPAP Sodium Potassium Chloride Carbon Dioxide Anion Gap BUN Creatinine Est GFR ( Amer) Est GFR (Non-Af Amer) BUN/Creatinine Ratio Glucose POC Glucose (mg/dL) 231 H Lactic Acid 1.4 Calcium Total Bilirubin AST ALT Alkaline Phosphatase Troponin I Total Protein Albumin Globulin Albumin/Globulin Ratio CA 125 Antigen 10/08/17 10/09/17 10/09/17 20:49 01:23 01:23 WBC 15.1 H RBC 3.97 L Hgb 11.7 L Hct 35 MCV 88 MCH 29 MCHC 34 RDW 14 Plt Count 337 MPV 7.2 L Neut % (Auto) 88.9 H Lymph % (Auto) 5.0 L Williams % (Auto) 5.1 Eos % (Auto) 0.1 Baso % (Auto) 0.9 Absolute Neuts (auto) 13.4 H Absolute Lymphs (auto) 0.8 L Absolute Monos (auto) 0.8 Absolute Eos (auto) 0 Absolute Basos (auto) 0.1 Absolute Nucleated RBC 0 Nucleated RBC % 0 ESR D-Dimer, Quantitative Patient Temperature ABG pH ABG pH (Temp Correct) ABG pCO2 ABG pCO2 (Temp Corrct ABG pO2 ABG pO2 (Temp Correct ABG HCO3 ABG O2 Saturation ABG Base Excess Respiration Rate O2 Delivery Device Ventilator Type Vent Mode FiO2 Inspiratory Time PEEP Pressure Support Pressure Control EPAP IPAP BiPAP Sodium 131 L Potassium 3.7 Chloride 97 L Carbon Dioxide 26 Anion Gap 8 BUN 8 Creatinine 0.66 Est GFR ( Amer) 121.3 Est GFR (Non-Af Amer) 100.2 BUN/Creatinine Ratio 12.1 Glucose 198 H POC Glucose (mg/dL) 147 H Lactic Acid Calcium 7.9 L Total Bilirubin 0.80 AST 21 ALT 13 Alkaline Phosphatase 83 Troponin I 0.01 Total Protein 6.2 L Albumin 2.9 L Globulin 3.3 Albumin/Globulin Ratio 0.9 L CA 125 Antigen 10/09/17 10/09/17 10/09/17 01:23 06:11 07:35 WBC RBC Hgb Hct MCV MCH MCHC RDW Plt Count MPV Neut % (Auto) Lymph % (Auto) Williams % (Auto) Eos % (Auto) Baso % (Auto) Absolute Neuts (auto) Absolute Lymphs (auto) Absolute Monos (auto) Absolute Eos (auto) Absolute Basos (auto) Absolute Nucleated RBC Nucleated RBC % ESR D-Dimer, Quantitative Patient Temperature Not Reportable Not Reportable ABG pH 7.48 H 7.46 H ABG pH (Temp Correct) Not Reportable Not Reportable ABG pCO2 37 37 ABG pCO2 (Temp Corrct Not Reportable Not Reportable ABG pO2 111 H 120 H ABG pO2 (Temp Correct Not Reportable Not Reportable ABG HCO3 28.0 26.8 ABG O2 Saturation 99.8 H 99.5 H ABG Base Excess 4.0 H 2.5 H Respiration Rate 12 O2 Delivery Device bipap Ventilator Type Not Reportable Vent Mode Not Reportable FiO2 45 Inspiratory Time Not Reportable PEEP Not Reportable Pressure Support Not Reportable Pressure Control Not Reportable EPAP 5 5 IPAP [address] Sodium Potassium Chloride Carbon Dioxide Anion Gap BUN Creatinine Est GFR ( Amer) Est GFR (Non-Af Amer) BUN/Creatinine Ratio Glucose POC Glucose (mg/dL) Lactic Acid 0.8 Calcium Total Bilirubin AST ALT Alkaline Phosphatase Troponin I Total Protein Albumin Globulin Albumin/Globulin Ratio CA 125 Antigen 10/09/17 10/09/17 08:01 08:01 WBC 15.9 H RBC 4.12 Hgb 12.1 Hct 35 MCV 86 MCH 29 MCHC 34 RDW 14 Plt Count 346 MPV 7.4 Neut % (Auto) 90.4 H Lymph % (Auto) 5.0 L Williams % (Auto) 4.0 Eos % (Auto) 0 Baso % (Auto) 0.6 Absolute Neuts (auto) 14.4 H Absolute Lymphs (auto) 0.8 L Absolute Monos (auto) 0.6 Absolute Eos (auto) 0 Absolute Basos (auto) 0.1 Absolute Nucleated RBC 0 Nucleated RBC % 0.1 ESR D-Dimer, Quantitative Patient Temperature ABG pH ABG pH (Temp Correct) ABG pCO2 ABG pCO2 (Temp Corrct ABG pO2 ABG pO2 (Temp Correct ABG HCO3 ABG O2 Saturation ABG Base Excess Respiration Rate O2 Delivery Device Ventilator Type Vent Mode FiO2 Inspiratory Time PEEP Pressure Support Pressure Control EPAP IPAP BiPAP Sodium 132 L Potassium 3.3 L Chloride 96 L Carbon Dioxide 26 Anion Gap 10 BUN 7 Creatinine 0.62 Est GFR ( Amer) 130.3 Est GFR (Non-Af Amer) 107.7 BUN/Creatinine Ratio 11.3 Glucose 217 H POC Glucose (mg/dL) Lactic Acid Calcium 8.0 L Total Bilirubin AST ALT Alkaline Phosphatase Troponin I Total Protein Albumin Globulin Albumin/Globulin Ratio CA 125 Antigen Imaging: CXR 10/09 some atelectasis, no sig congestion or focal infiltrate CTA chest 10/08 no PE, ?enhancing lesion of liver CT abd/pelvis 10/08 left ovarian complex cystic mass 10cm Assessment: 37y F w/pmhx of DM2, HTN; comes to ER 10/08 for back pain and abdominal pain, diaphoretic+, associated with nausea/vomiting+. She was initially found to have sepsis, suspected urinary source, started on zosyn, then Cipro for coverage. Imaging of abdomen revealed a left ovarian cystic mass on CT scan. A CTA of chest was done indicating no PE, some question of enhancing lesion in liver. A TTE demonstrated normal LV function but some RV hypokinesis. While on medical floor overnight she developed respiratory distress -Acute hypoxic respiratory failure -Severe Sepsis -possible UTI ? -Left ovarian complex mass/cyst Plan: Neuro- awake, alert. anxious. delirium prec. asp prec. CVS- tachycardic, BP stable. no sig overload signs noted. CXR without sig congestion. will give Lasix PRN. BP elevation was prob 2/2 to stress/distress, no NTG needed. IV abx for sepsis continued. Resp- on NIV now, more comfortable. CXR without sig congestion. will switch to hiflow later in afternoon. Morphine for pain/anxiety. Bronchodilators PRN. ID- tmax 104, decreasing fever curve slowly now. WBC 25->15 now. Blood culture neg so far. Urinalysis with LE and WBC, no bacteria. repeat Urinalysis again. Left Ovarian mass/cyst, possibility of infectious source, abscess? infected cyst ? will change IV abx to broaden to Zosyn/vanco (day#1) FINE PATCHER - left ovarian cyst/mass. FINE PATCHER consult called, awaiting callback. will have to consider drainage or sampling to see if this is the source now. IV abx broadened. GI- diabetic/Liquid diet off NIV. zofran prn for nausea. h2b proph. Renal- Cr okay. K 3.3, replete IV 20meq x 3. making urine. hold lasix for now. Heme- hg stable 12. plt okay. dvt proph, chem/mech Endo- fingerstick ac/hs; cont lantus; hold meal dosing unless PO increased. Musculsk- pressure ulcer prophylaxis. Bedrest. Wounds- none Nutrition- diabetic diet, liquid for now DVT prophylaxis: heparin sq, scds GI prophylaxis: pepcid Central Line: no Arterial Line: no Stark Cathetor: yes Disposition: ICU Code Status: full code Total Critical Care time is 50 minutes, excluding procedures/teaching Curt Jamil MD [employer] Cable Machine Operator (Electronically Signed)
[2017-10-09] MEDS ORDERED: Albuterol 2.5 MG/3 ML NEB.SOL* (0.083%) INH PRN (11:45)
[2017-10-09] MEDS ORDERED: Vancomycin per Pharmacy* NOTE FOLLOW UP SCH (12:00)
[2017-10-09] MEDS ORDERED: ZOSYN 3.375 GM x ONE DOSE over 30 miuntes IVPB ×2 (12:00)
[2017-10-09] MEDS ORDERED: Vancomycin 2000 MG X 1 dose, then per Pharmacy PROTOCOL IVPB ONE ×2 (12:30)
[2017-10-09] MEDS: Ondansetron INJ* 2 MG/ML VIAL IV PRN ×2 (12:41→21:06)
[2017-10-09] MEDS: DOXYcycline IV* 100 MG in NS 0.9% 250 ML* 250 ML IVPB SCH (13:31)
[2017-10-09] MEDS: Vancomycin(*) 1,000 MG in NS 0.9% 250 ML* 250 ML IVPB SCH ×2 (14:15→20:12)
[2017-10-09] MEDS: Piperacillin/Tazobac ADVAN(*) 3.375 GM in NS 0.9% 100 ML* 100 ML IVPB SCH ×2 (16:09→23:45)
[2017-10-09] MEDS: Insulin GLARGINE(*) 1 UNITS UNIT SUBCUT SCH (22:54)
[2017-10-10] MEDS: HYDROmorphone INJ* 0.5 MG/0.5 ML SYRINGE IV SLOW PU PRN ×6 (01:42→21:42)
[2017-10-10] MEDS: DOXYcycline IV* 100 MG in NS 0.9% 250 ML* 250 ML IVPB SCH ×2 (01:43→12:48)
[2017-10-10] MEDS: Ondansetron INJ* 2 MG/ML VIAL IV PRN ×3 (01:47→20:41)
[2017-10-10] MEDS: Vancomycin(*) 1,000 MG in NS 0.9% 250 ML* 250 ML IVPB SCH ×2 (05:37→15:30)
[2017-10-10 06:17] LABS: Hematocrit 37 % (35-47); Hemoglobin 12.4 g/dl (12.0-16.0); Mean Corpuscular HGB Conc 33 g/dl (31-36); Mean Corpuscular Hemoglobin 29 pg (27-31); Mean Corpuscular Volume 88 fL (80-97); Mean Platelet Volume 7.4 um3 (7.4-10.4); Platelet Count 257 10^3/ul (150-450); Red Blood Count 4.22 10^6/ul (4.00-5.40); Red Cell Distribution Width 14 % (10.5-15)
[2017-10-10] MEDS: Heparin VIAL(*) 5000 UNITS/ML VIAL (FIVE THOUSAND) SUBCUT SCH ×3 (06:29→21:42)
[2017-10-10 07:10] LABS: EGFR Non-African American 123.7 (>60)
[2017-10-10] MEDS ORDERED: Vancomycin Trough Check NOTE FOLLOW UP ONE (08:00)
[2017-10-10] MEDS: Piperacillin/Tazobac ADVAN(*) 3.375 GM in NS 0.9% 100 ML* 100 ML IVPB SCH ×2 (08:30→18:12)
[2017-10-10] MEDS ORDERED: Famotidine IV * 20 MG in NS 0.9% 100 ML* 100 ML IVPB SCH (09:00)
[2017-10-10] MEDS ORDERED: Famotidine IV* 10 MG/ML 2 ML (20 mg) IV SCH (09:00)
[2017-10-10] MEDS: Insulin LISPRO* 1 UNITS UNIT SUBCUT SCH ×3 (09:14→19:15)
--- NOTE | 2017-10-10 09:38 | CONS ---
CC: Dr. Lema at [facility], office is [address], [address] GYNECOLOGY CONSULTATION REPORT: DATE OF CONSULT: 10/09/2017. HISTORY OF PRESENT ILLNESS: present for history and PE. The patient is a 37-year-old 1, para 0-0-1-0 with a last menstrual period of 09/24/17. The patient complains of left lower back pain radiating to the front for 1 week. She said that the pain was initially mild, but became very strong on 10/07/17 when it was also associated with nausea and vomiting, she felt warm, she had chills and sweats overnight and then presented to the emergency room 10/08/17. She did not have vaginal bleeding, abnormal vaginal d/c , or vulvar lesions. She did not have dysuria. She did not have diarrhea. No new sexual partners. Monogamous marriage. She and her do not use control. She says she is feeling better since admission, pain well managed with IV pain meds. The patient had a Pap she says approximately 3 years ago at [facility]. She does not have a sewage plant attendant. PAST MEDICAL HISTORY: Significant for type 2 diabetes, which she treats with Lantus and metformin and hypertension. PAST SURGICAL HISTORY: Cholecystectomy in 2011. OB HISTORY: One miscarriage, first trimester. SOCIAL HISTORY: The patient is a nonsmoker. She lives with her . They are planning to move to [place] at the end of this week. PHYSICAL EXAM: Vital Signs: Blood pressure was normal, the pulse was 100, she was afebrile with a T-max of 103. General Appearance: She is lying in bed and was alert and awake, able to answer all of my questions. Her last pain medication was approximately 4 hours ago. She said the pain on the left side was getting stronger and she was going to request more pain medication that the morphine and a Dilaudid were controlling the pain well. Abdominal Exam: The patient is morbidly obese. Her abdomen was soft. She had diffuse tenderness on the the left lower quadrant. I did not do a pelvic exam due to her discomfort and I think the exam will not be of good value based on her habitus. DIAGNOSTIC STUDIES/LAB DATA: I reviewed that the transvaginal sono report from yesterday, which showed a up to 10 cm left-sided pelvic mass that was complex. Normal size uterus with a 9-mm endometrium. CAT scan on 10/08/17 report: lobulated mass in the left hemipelvis measuring up to 8.6 cm, no hydronephrosis or nephrolithiasis. On admission, her white blood cell count was 25, today it is 15. Her CA-125 level is 26, which is normal. Her quantitative beta-hCG is negative less than 0.6. The urine culture is negative. IMPRESSION: The patient was initially admitted with sepsis thought to be urosepsis. She did not experience dysuria but was having significant left flank pain. There is a 8 to 10-cm complex left probably adnexal mass making diagnosis of tubo-ovarian abscess more likely. Dr. Jamil extended her antibiotic coverage to cover in case of pelvic inflammatory disease and tubo- ovarian abscess. She is currently taking vancomycin, Zosyn, and doxycycline 100 mg IV q.12 hours. I recommend that she continue under ICU care until she is stable. I recommend continued broad coverage IV antibiotics. I ordered a urine Gonorrhea and Chlamydia test as endocervical cultures would not be possible with speculum exam based on her habitus and in a bed without stirrups. I explained to the patient and her , Thierry, that in general pelvic inflammatory disease with tubo-ovarian abscess is treated with IV antibiotics and pain medication as needed and hers is complicated by the type 2 diabetes and might require a longer stay. Hopefully, she will respond to the IV antibiotics with a decrease in white count and will remain afebrile and then when she stabilizes be converted to by mouth antibiotics and hopefully discharged home to complete a full course of antibiotics and in hopes that the pelvic inflammatory disease and tubo-ovarian abscess would resolve with this antibiotic coverage. I explained that there is a possibility that she could need surgical removal of the tubo-ovarian abscesses and that is less common. I explained to the patient and her that sewage plant attendant will be seeing her daily and that would be the sewage plant attendant on-call. I will be signing her out to Dr. Pizano who is the sewage plant attendant on-call tomorrow. If there are any questions of the gynecologic nature, I recommend that the provider call the sewage plant attendant on-call to address them. [id number]/[facility] #: [id number] [facility]
--- NOTE | 2017-10-10 10:04 | PN ---
Progress Note - Progress Note Date of Service: 10/10/17 Note: Progress Note -- Critical Care 24 hour events: -in bed; off NIV yesterday afternoon and has remained off -current abd and back pain 4-6 -awake/alert, no distress otherwise -fever curve down, now afebrile Tele: sinus tachy Vitals: Vital Signs Temp 99.3 F 10/10/17 06:31 Pulse 105 10/10/17 06:31 Resp 34 10/10/17 10:00 BP 125/86 10/10/17 06:31 Pulse Ox 91 10/10/17 06:31 Intake & Output 10/09/17 10/10/17 10/10/17 18:59 06:59 18:59 Intake Total 1533 594 Output Total 625 835 Balance 908 -241 Weight 167.1 kg Intake: IV Fluids 1081 293 ABX - ZOSYN 100 NS 1081 193 IVPB 201 NS 201 Medicated IV 2 CC - Nitroglycerine/ 2 Tridil Oral 450 100 Output: Stark 625 735 Straight Cath 100 O2/Vent: NC Infusions: heplock Current Medications: Acetaminophen (Tylenol Tab*) 650 mg PO Q6H PRN PRN Reason: pain/fever Last Admin: 10/09/17 21:02 Dose: 650 mg Albuterol (Ventolin 2.5 Mg/3 Ml Neb.Lizbeth*) 2.5 mg INH Q4H PRN PRN Reason: SOB/WHEEZING Dextrose (D50w Syringe 50 Ml*) 12.5 gm IV PUSH .FOR FS < 60 - SS PRN PRN Reason: FS < 60 Famotidine (Pepcid Tab*) 20 mg PO DAILY [facility] Heparin Sodium (Porcine) (Heparin Vial(*)) 5,000 units SUBCUT Q8HR [facility] Last Admin: 10/10/17 06:29 Dose: 5,000 units Hydromorphone HCl (Dilaudid Inj*) 1 mg IV SLOW PU Q3HR PRN PRN Reason: PAIN Last Admin: 10/10/17 10:00 Dose: 1 mg Piperacillin Sod/Tazobactam (Sod 3.375 gm/ Sodium Chloride) 100 mls @ 25 mls/ hr IVPB Q8H [facility] Last Admin: 10/10/17 08:30 Dose: 25 mls/hr Doxycycline Hyclate 100 mg/ (Sodium Chloride) 250 mls @ 250 mls/hr IVPB Q12H KRIST[facility] Last Admin: 10/10/17 01:43 Dose: 250 mls/hr Vancomycin HCl 1,000 mg/ (Sodium Chloride) 250 mls @ 166.667 mls/hr IVPB 0000, 0600,1200,1800 K[facility]ST[facility] Ibuprofen (Motrin Tab*) 600 mg PO Q6H PRN PRN Reason: PAIN Last Admin: 10/09/17 20:12 Dose: 600 mg Insulin Glargine (Lantus(*)) 50 units SUBCUT BEDTIME KRISTEN Last Admin: 10/09/17 22:54 Dose: 50 units Insulin Human Lispro (Humalog*) 0 units SUBCUT AC KRISTEN; Protocol Last Admin: 10/10/17 09:14 Dose: 3 units Iodixanol (Visipaque* 320 (Contrast)) 96 ml IV ONCE KRISTEN Stop: 10/10/17 20:15 Morphine Sulfate (Morphine Inj ((Syringe))*) 4 mg IV Q4H PRN PRN Reason: PAIN Last Admin: 10/09/17 23:46 Dose: 4 mg Ondansetron HCl (Zofran Inj*) 4 mg IV Q4H PRN PRN Reason: NAUSEA/VOMITING Last Admin: 10/10/17 06:20 Dose: 4 mg Pharmacy Consult (Vancomycin Per Pharmacy*) 1 note FOLLOW UP .VANC PER PHARMACY [facility] Physical Exam: General: awake, alert, no distress, no diaphoresis, obese Head: normocephalic, atraumatic HEENT: no pallor, no icterus, moist mucous membranes Neck: soft, supple, no jvd, no stridor CVS: tachy, regular, no murmur Resp: bilateral air entry, no rhales, no wheeze, no rhonchi, no acc muscle use Abdomen: soft, mild tenderness on deep palpation, nondistended, bowel sounds present Ext: pulses+, warm, no edema Skin: intact, no breakdown, no dryness Neuro: awake, alert, orientedx3, moving all extremities, no gross focal deficit Labs: Laboratory Results - last 24 hr 10/09/17 10/09/17 10/09/17 12:35 18:01 21:30 WBC RBC Hgb Hct MCV MCH MCHC RDW Plt Count MPV Sodium Potassium Chloride Carbon Dioxide Anion Gap BUN Creatinine Est GFR ( Amer) Est GFR (Non-Af Amer) BUN/Creatinine Ratio Glucose POC Glucose (mg/dL) 266 H 270 H 238 H Calcium 10/10/17 10/10/17 06:02 06:02 WBC 16.0 H RBC 4.22 Hgb 12.4 Hct 37 MCV 88 MCH 29 MCHC 33 RDW 14 Plt Count 257 MPV 7.4 Sodium 134 L Potassium 3.9 Chloride 98 L Carbon Dioxide 28 Anion Gap 8 BUN 8 Creatinine 0.55 Est GFR ( Amer) 149.7 Est GFR (Non-Af Amer) 123.7 BUN/Creatinine Ratio 14.5 Glucose 195 H POC Glucose (mg/dL) Calcium 7.7 L Imaging: CXR 10/09 some atelectasis, no sig congestion or focal infiltrate CTA chest 10/08 no PE, ?enhancing lesion of liver CT abd/pelvis 10/08 left ovarian complex cystic mass 10cm transvag US - reviewed; left ovarian cyst/mass Assessment: 37y F w/pmhx of DM2, HTN; comes to ER 10/08 for back pain and abdominal pain, diaphoretic+, associated with nausea/vomiting+. She was initially found to have sepsis, suspected urinary source, started on zosyn, then Cipro for coverage. Imaging of abdomen revealed a left ovarian cystic mass on CT scan. A CTA of chest was done indicating no PE, some question of enhancing lesion in liver. A TTE demonstrated normal LV function but some RV hypokinesis. While on medical floor overnight she developed respiratory distress -Acute hypoxic respiratory failure; resolved -Severe Sepsis -possible UTI ? -Left ovarian complex mass/cyst Plan: Neuro- awake, alert. anxious. delirium prec. asp prec. CVS- tachycardia better, BP stable. IV abx for sepsis continued. Resp- on NC, no distress. no further requirements for NIV. Morphine for pain/ anxiety. Bronchodilators PRN. ID- tmax 99 now this morning, fever curve has come down. WBC 16. Blood culture neg so far. Urinalysis with LE and WBC, no bacteria. Check GC/Chlamyd urine pcr. CT with left ovarian cyst/collection. Suspect possible PID/TOA as source of pain/sepsis. Switched to Zosyn (day#2), Doxy (day#2); d/c vanco IV. for now will conservatively manage, no indication for drainage as per FRESCO ARTIST. FRESCO ARTIST - left ovarian cyst/mass. FRESCO ARTIST consult reviewed. Conservative tx for PID/TOA unless not responding. Cont IV zosyn/doxy. Check PCR urine GC/Chl GI- diabetic mechanical soft. zofran prn for nausea. h2b proph. Renal- Cr okay. K okay today. making urine. Heme- hg stable 12. plt okay. dvt proph, chem/mech Endo- fingerstick ac/hs; cont lantus, increase if BS>200 Musculsk- pressure ulcer prophylaxis. oob to chair as tolerated Wounds- none Nutrition- diabetic diet DVT prophylaxis: heparin sq, scds GI prophylaxis: pepcid Central Line: no Arterial Line: no Stark Cathetor: no Disposition: ICU; if remains afebrile, can transfer to medical floor today Code Status: full code Curt Jamil MD Rough And Truing Machine Operator (Electronically Signed)
[2017-10-10] MEDS: Acetaminophen TAB* 325 MG PO PRN ×2 (10:33→19:09)
[2017-10-10] MEDS ORDERED: Vancomycin(*) 1,000 MG in NS 0.9% 250 ML* 250 ML IVPB SCH (12:00)
--- NOTE | 2017-10-10 16:23 | PN ---
Progress Note - Progress Note Date of Service: 10/10/17 SOAP: Subjective: [Pleasan t female/ feeling better less back pain] Objective: [Tmax 103 Tnow 99.3 BP 116/80 P: 99 const : plesant/ alert oriented Abdomen: no rebound no guarding non tender to palpation Ext: nt/scd's in placpelvic: deferred/ done by Dr Lema] Assessment: [Pt 37 yo G0 presents with increasing fevers , chills, and lower and back pain starting on 10/07/17. Pt notes that since staring Abx she is feeling better and less short of breath. Pt is aware would not recommend traveling until this issue has resolved and will need close inpatient observation but also post discharge follow up.] Plan: [Pt is to continue on IV abx as ordered Zosyn/doxycycline with plans of evaluation of pelvic mass with MRI as recommended by Radiology. Pt will be followed on rn gyn service and would continue until afebrile X 24 hours then convert to oral regimen . Pt would be a candidate for levofloxacin 500 mg daily with anaerobic coverage with metronidazole 500mg BID or doxycycline 100 mg BID and metronidazole 500 mg BID. Pt will need follow up with her trim master operator Dr Lema on an outpatient basis.]
[2017-10-10] MEDS: Morphine INJ* 2 MG/ML 1 ML SYRINGE (TWO MG - NEW SYRINGE VERSION) IV PRN (20:31)
[2017-10-10] MEDS: Insulin GLARGINE(*) 1 UNITS UNIT SUBCUT SCH (20:32)
[2017-10-11] MEDS: Piperacillin/Tazobac ADVAN(*) 3.375 GM in NS 0.9% 100 ML* 100 ML IVPB SCH ×4 (00:05→23:29)
[2017-10-11] MEDS: HYDROmorphone INJ* 0.5 MG/0.5 ML SYRINGE IV SLOW PU PRN ×6 (00:27→23:31)
[2017-10-11] MEDS: Ibuprofen TAB* 600 MG PO PRN (00:28)
[2017-10-11] MEDS: DOXYcycline IV* 100 MG in NS 0.9% 250 ML* 250 ML IVPB SCH ×2 (00:28→13:43)
[2017-10-11] MEDS: Ondansetron INJ* 2 MG/ML VIAL IV PRN (02:49)
[2017-10-11] MEDS: Heparin VIAL(*) 5000 UNITS/ML VIAL (FIVE THOUSAND) SUBCUT SCH ×3 (05:12→20:38)
[2017-10-11] MEDS: Morphine INJ* 2 MG/ML 1 ML SYRINGE (TWO MG - NEW SYRINGE VERSION) IV PRN ×3 (05:13→17:20)
[2017-10-11 06:57] LABS: Hematocrit 34 % (35-47); Hemoglobin 11.3 g/dl (12.0-16.0); Mean Corpuscular HGB Conc 33 g/dl (31-36); Mean Corpuscular Hemoglobin 29 pg (27-31); Mean Corpuscular Volume 87 fL (80-97); Mean Platelet Volume 7.3 um3 (7.4-10.4); Platelet Count 319 10^3/ul (150-450); Red Blood Count 3.92 10^6/ul (4.00-5.40); Red Cell Distribution Width 14 % (10.5-15); White Blood Count 19.6 10^3/ul (3.5-10.8)
[2017-10-11 07:12] LABS: EGFR Non-African American 111.9 (>60)
--- NOTE | 2017-10-11 09:10 | RAD ---
Indication: LEFT pelvic mass on October 08, 2017 CT. Comparison: October 08, [address] and pelvic ultrasound. October 19, [address] Technique: [employer] [place] 1.5 Autumn [id number] with GEM suite. MRI abdomen and pelvis without contrast. Imaging planes at the pelvis are oriented for the gynecological structures. Report: Motion artifact degrades image quality. VISUALIZED INFERIOR THORAX: Trace RIGHT pleural effusion. LIVER / GALLBLADDER / PANCREAS / SPLEEN: 5.8 x 7.7 x 5.9 cm sharply circumscribed lobular margined mildly T2 hyperintense T1 isointense lesion at the RIGHT hepatic lobe. The lesion demonstrates restricted diffusion. This lesion is isodense to surrounding liver parenchyma and a cold October 08, [address] The lesion is also not conspicuous on the October 19, [address] Negative for additional focal liver lesions. Negative for biliary dilatation. Post cholecystectomy. Unremarkable pancreas. Enlarged spleen measuring up to 15.8 cm cephalocaudal. Negative for focal splenic lesions. ALIMENTARY TRACT: Motion artifact significantly limits image quality of the alimentary tract. No gross pathologic process evident. Negative for ascites. MESENTERIC: Unremarkable. ADRENAL / GENITOURINARY: Negative for adrenal lesions. 3.4 cm cortical cyst at the anterior inferior pole of the RIGHT kidney. No suspicious renal lesions or hydronephrosis. Negative for ureteral dilatation. Unremarkable catheterized urinary bladder. Unremarkable anteverted uterus. 4 mm endometrium within normal limits. Nabothian cysts at the cervix. 3.9 x 3.1 x 2.4 cm RIGHT ovary is remarkable for a 2.6 cm maximum dimension dominant follicular cyst. 8.5 x 8.6 x 6.8 cm enlarged RIGHT ovary secondary to a cystic and solid mass with thick septations and complex cystic elements. No signal voids within the mass to favor presence of densely calcified/ossified elements. No hydrosalpinx visualized. RETROPERITONEAL: Negative for lymphadenopathy within the [id number]. VASCULAR: Normal diameter abdominal aorta and iliac arteries. Partially decompressed IVC indicating lower volume state. BONES: No osseous lesions visualized. SOFT TISSUE: Bilateral flank and posterior subcutaneous edema. IMPRESSION: #. Indeterminant 7.7 cm lesion at the RIGHT hepatic lobe with assessment limited without multiphasic postcontrast series. The differential includes benign entities such as hepatic adenoma, focal nodular hyperplasia, and hemangioma as well as less likely malignant primary liver lesions and metastatic lesions. Further assessment with multiphasic contrast-enhanced MRI of the abdomen is suggested. #. Indeterminant 8.6 cm maximum dimension complex RIGHT ovarian lesion without associated hydrosalpinx or free pelvic fluid and inflammatory change to favor tubo-ovarian abscess. The differential includes germ cell and ovarian epithelial neoplasms. Contrast-enhanced MRI of the pelvis may be helpful for further characterization. Gynecologic consultation for resection is suggested. #. No compelling metastatic implants evident at the abdomen or pelvis.
[2017-10-11] MEDS ORDERED: NS 0.9% 100 ML* 100 ML ONE (09:23)
[2017-10-11] MEDS: Famotidine TAB* 20 MG PO SCH (09:27)
[2017-10-11] MEDS: Insulin LISPRO* 1 UNITS UNIT SUBCUT SCH ×3 (09:27→17:22)
--- NOTE | 2017-10-11 17:08 | PN ---
Progress Note - Progress Note Date of Service: 10/11/17 SOAP: Subjective: Pt initially with suspected urosepsis found to have likely left TOA, on IV abx. Yesterday, reported improved pain. Today reports no improvement over the past day. Still unable to stand up straight. Has Stark catheter in due to difficulty getting up from this pain. Reports she usually does not have trouble walking. Not having fever/chills for the past day. Pt reports a long h/o cough which has been persistent. Objective: Vital Signs: Temp Pulse Resp BP Pulse Ox 99.5 F 118 28 156/79 93 10/11/17 15:29 10/11/17 15:29 10/11/17 15:29 10/11/17 15:29 10/11/17 15:58 Pt coughing frequently, reports pain with this. Unable to do exam due to pt on commode for a long time. Laboratory Results - last 24 hr 10/10/17 10/10/17 10/10/17 10:55 18:17 20:15 WBC RBC Hgb Hct MCV MCH MCHC RDW Plt Count MPV Sodium Potassium Chloride Carbon Dioxide Anion Gap BUN Creatinine Est GFR ( Amer) Est GFR (Non-Af Amer) BUN/Creatinine Ratio Glucose POC Glucose (mg/dL) 213 H 205 H Calcium C.trachomatis (Amp Det) Negative N.gonorrhoeae (Amp Det) Negative 10/11/17 10/11/17 10/11/17 03:57 06:48 06:48 WBC 19.6 H RBC 3.92 L Hgb 11.3 L Hct 34 L MCV 87 MCH 29 MCHC 33 RDW 14 Plt Count 319 MPV 7.3 L Sodium 131 L Potassium 3.4 L Chloride 93 L Carbon Dioxide 28 Anion Gap 10 BUN 8 Creatinine 0.60 Est GFR ( Amer) 135.4 Est GFR (Non-Af Amer) 111.9 BUN/Creatinine Ratio 13.3 Glucose 227 H POC Glucose (mg/dL) 205 H Calcium 8.1 L C.trachomatis (Amp Det) N.gonorrhoeae (Amp Det) Assessment/Plan: Left TOA, confirmed (most likely dx) on MRI yesterday. - continue IV abx until improving clinically and afebrile. Has now been technically afebrile for 24 hrs but pain is not much improved. - see recs from Dr. Pizano 10/10 for details. - if pain does not improve, may need to consider surgical drainage, likely after transfer to tertiary facility. - recommend removing Stark catheter as soon as pt's condition warrants. DM with poor control, being managed by attending hospitalists Liver mass on MRI, found incidentally. Pt reports she was not aware of this. - Radiology considers it most likely to be benign but may warrant additional evaluation after this hospitalization.
[2017-10-11] MEDS: guaiFENesin LIQ* 100 MG/5 ML UDC PO PRN (17:33)
--- NOTE | 2017-10-11 17:39 | PN ---
Progress Note - Progress Note Date of Service: 10/11/17 Note: Called by RN regarding patient's new O2 requirement and cough. On assessment, patient is comfortable but is now on 5L NC. She reports a chronic cough that is not changed from baseline. Her lungs are diminished but difficult to assess due to body habitus. She does endorse feeling a bit more short of breath this afternoon. Plan to check a chest xray now. Patient has been minimally mobile and is not taking deep breaths due to pain in abdomen. Recommended that nurse get patient out of bed to chair and use IS to promote ventilation and combat atelectasis. Have discussed with Dr. Clayton. Will re-evaluate patient when chest xray complete.
[2017-10-11] MEDS ORDERED: HYDROmorphone INJ* 0.5 MG/0.5 ML SYRINGE IV SLOW PU ONE (19:05)
[2017-10-11] MEDS ORDERED: HYDROmorphone INJ* 0.5 MG/0.5 ML SYRINGE IV SLOW PU PRN (19:46)
--- NOTE | 2017-10-11 19:58 | RAD ---
INDICATION: Short of breath. Hypoxia COMPARISON: October 09, 2017 TECHNIQUE: An AP portable view obtained at 1944 hours is submitted. FINDINGS: Bones/Soft Tissues: There are no acute bony findings. Cardiomediastinal: The cardiomediastinal silhouette is normal. Lungs: There are no infiltrates. Pleura: There are no pleural effusions. Other: None IMPRESSION: NO ACTIVE DISEASE.
[2017-10-11] MEDS: Benzonatate CAP* 100 MG PO PRN (20:37)
[2017-10-11] MEDS: Insulin GLARGINE(*) 1 UNITS UNIT SUBCUT SCH (20:38)
--- NOTE | 2017-10-11 20:45 | PN ---
Progress Note - Progress Note Date of Service: 10/11/17 Note: Patient re-assessed multiple times this evening. She has been on 5LNC and then off briefly and now is back on 3L NC. Chest xray is unremarkable though a poor quality study. She denies shortness of breath. She has been on 2-3L NC for a couple of days. I believe that she has atelectasis, apnea, and obesity hypoventilation syndrome. Continue to encourage IS, flutter valve and out of bed to chair. Patient also weeping and frustrated complaining of left flank pain. Discussed case with Dr. Ramon, Dr. Jamil and Dr. Clayton at length. Patient's abdomen is soft and non-tender to palpation. She is comfortable after receiving one extra dose of dilaudid. She has a worsening leukocytosis and a worsening CRP but her fever curve has turned and she appears to be unchanged on exam. Plan to continue to monitor closely overnight. Recheck labs in AM and re- assess. If she is not improving, anticipate transfer to tertiary care facility for possible drainage of abscess. Dr. Ramon is on over night and is aware of situation. Patient's primary RN, Mile, is aware of situation and will monitor closely throughout the night and call with any concerns.
[2017-10-12] MEDS: guaiFENesin LIQ* 100 MG/5 ML UDC PO PRN ×4 (00:17→20:01)
[2017-10-12] MEDS: DOXYcycline IV* 100 MG in NS 0.9% 250 ML* 250 ML IVPB SCH ×2 (00:56→12:37)
[2017-10-12] MEDS: oxyCODONE/Acetamin 5/325 MG* TAB PO PRN ×2 (03:50→23:45)
[2017-10-12] MEDS: HYDROmorphone INJ* 0.5 MG/0.5 ML SYRINGE IV SLOW PU PRN ×5 (03:50→19:59)
[2017-10-12] MEDS: Heparin VIAL(*) 5000 UNITS/ML VIAL (FIVE THOUSAND) SUBCUT SCH ×3 (05:05→21:22)
[2017-10-12 06:10] LABS: ABS Basophils 0.1 10^3/ul (0-0.2); ABS Eosinophils 0 10^3/ul (0-0.6); ABS Lymphocytes 1.6 10^3/ul (1.0-4.8); ABS Monocytes 1.4 10^3/ul (0-0.8); ABS Neutrophils 16.1 10^3/ul (1.5-7.7); ABS Nucleated RBC 0 10^3/ul; Eosinophil % 0.1 % (0-6); Hematocrit 32 % (35-47); Hemoglobin 10.7 g/dl (12.0-16.0); Lymphocyte % 8.4 % (25-47); Mean Corpuscular HGB Conc 33 g/dl (31-36); Mean Corpuscular Hemoglobin 29 pg (27-31); Mean Corpuscular Volume 87 fL (80-97); Mean Platelet Volume 7.1 um3 (7.4-10.4); Nucleated Red Blood Cells % 0; Platelet Count 349 10^3/ul (150-450); Red Blood Count 3.72 10^6/ul (4.00-5.40); Red Cell Distribution Width 14 % (10.5-15); White Blood Count 19.3 10^3/ul (3.5-10.8)
[2017-10-12] MEDS: Piperacillin/Tazobac ADVAN(*) 3.375 GM in NS 0.9% 100 ML* 100 ML IVPB SCH ×3 (07:25→23:30)
[2017-10-12] MEDS: Famotidine TAB* 20 MG PO SCH (07:25)
[2017-10-12] MEDS: Benzonatate CAP* 100 MG PO PRN ×2 (07:25→13:13)
[2017-10-12] MEDS: Insulin LISPRO* 1 UNITS UNIT SUBCUT SCH ×3 (08:39→16:42)
--- NOTE | 2017-10-12 10:51 | PN ---
Progress Note - Progress Note Date of Service: 10/12/17 Note: 37 yo with initial sepsis and a pelvic mass thought to be a TOA pt feels like she is starting to do more but has still a great deal of pain with activity. + flatus but constipation and no BM since sunday. Some desaturation overnight on room air. bp stable currently p-100 Pt is now afebrile and has been since the . urine output is adequate abdomen is soft but diffusely mildly tender with palpation/ +Bowel sounds extremities non tender to palpation I have discussed care with hospitalist. Alem Paiz ADMINISTRATIVE ASSISTANT OFFICE MANAGER They should continue to be primary in this case If patient continues to respond to antibiotics as per Dr Lema she will not need drainage. If she does not respond and that becomes necessary may consider interventional radiology. If she needs surgery to drain I would recommend transfer to tertiary center with hotel service supervisor oncology as this would be a very complicated surgery. I would consult interventional radiology now to start putting plans in place ( as they may not be comfortable with drainage in this setting for the same reasons)
[2017-10-12] MEDS ORDERED: Potassium Chlor TAB* 10 MEQ TAB.ER PO ONE (14:22)
[2017-10-12] MEDS: Morphine INJ* 2 MG/ML 1 ML SYRINGE (TWO MG - NEW SYRINGE VERSION) IV PRN (17:07)
--- NOTE | 2017-10-12 17:09 | PN ---
Subjective Date of Service: 10/12/17 Interval History: Spoke to Dr. Duran from [facility] [employer] [facility] who recommended consultation for IR for the possibility of draining the ovarian mass, IR did not feel that this was appropriate as there does not appear to be any drainable fluid collection. Patient examined at bedside, c/o cough and mild shortness of breath with coughing. Denies chest pain or shortness of breath at this time. c/o of lower abd pain with coughing. reviewed that currently her infection does not appears to be stemming from a UTI or pneumonia as her urinary culture and lungs are clear. blood cltures were also negative. Reviewed with the patient the need to be transferred to a another facility that is capable of managing her pelvic mass. Patient reports that she does not want to be transferred to another facility at this time. Advised the patient of the severity of her condition and the need to possible surgical intervention and continue to decline transfer. patient reports that she would "ratter just ." states i can not do this anymore, i am calling my to come pick me up and take me home. patient was advised of the risks of leaving against medical advise including , or worsening of condition. Later spoke patient again and review the need to transfer to a facility that is capable of managing her pelvic mass. The need for have a Repeat MRI with contrast to evaluate the liver lesion. Again the patient states that she does not want to be transferred at this time. Patient reports that if she has cancer she : will commit suicide" . Patient advised that she needs to have the mass evaluated to confirm that the mass is definitely cancer. She asked why her records could not be sent to another facility for review, advised patient that was not appropriate for her care and that she would need to be seen and evaluated by a specialist to discuss further treatment options. Patient was advised that she would have a psychiatric consultation during her admission her given the statements she has made. Patient and are continuing to discuss being transferred at this time but have not agreed to transfer. Family History: Unchanged from Admission Social History: Unchanged from Admission Past Medical History: Unchanged from Admission Objective Active Medications: Acetaminophen (Tylenol Tab*) 650 mg PO Q6H PRN PRN Reason: pain/fever Last Admin: 10/10/17 19:09 Dose: 650 mg Albuterol (Ventolin 2.5 Mg/3 Ml Neb.Lizbeth*) 2.5 mg INH Q4H PRN PRN Reason: SOB/WHEEZING Last Admin: 10/10/17 19:53 Dose: 2.5 mg Benzonatate (Tessalon Cap*) 100 mg PO BID PRN PRN Reason: COUGH Last Admin: 10/12/17 13:13 Dose: 100 mg Dextrose (D50w Syringe 50 Ml*) 12.5 gm IV PUSH .FOR FS < 60 - SS PRN PRN Reason: FS < 60 Famotidine (Pepcid Tab*) 20 mg PO DAILY [facility] Last Admin: 10/12/17 07:25 Dose: 20 mg Guaifenesin (Robitussin*) 5 ml PO Q4H PRN PRN Reason: COUGH Last Admin: 10/12/17 15:52 Dose: 5 ml Heparin Sodium (Porcine) (Heparin Vial(*)) 5,000 units SUBCUT Q8HR [facility] Last Admin: 10/12/17 13:40 Dose: 5,000 units Hydromorphone HCl (Dilaudid Inj*) 1 mg IV SLOW PU Q3HR PRN PRN Reason: PAIN Last Admin: 10/12/17 15:32 Dose: 1 mg Piperacillin Sod/Tazobactam (Sod 3.375 gm/ Sodium Chloride) 100 mls @ 25 mls/ hr IVPB Q8H [facility] Last Admin: 10/12/17 16:20 Dose: 25 mls/hr Doxycycline Hyclate 100 mg/ (Sodium Chloride) 250 mls @ 250 mls/hr IVPB Q12H [facility] Last Admin: 10/12/17 12:37 Dose: 250 mls/hr Ibuprofen (Motrin Tab*) 600 mg PO Q6H PRN PRN Reason: PAIN Last Admin: 10/11/17 00:28 Dose: 600 mg Insulin Glargine (Lantus(*)) 50 units SUBCUT BEDTIME [facility] Last Admin: 10/11/17 20:38 Dose: 50 units Insulin Human Lispro (Humalog*) 0 units SUBCUT AC [facility]; Protocol Last Admin: 10/12/17 16:42 Dose: 3 units Morphine Sulfate (Morphine Inj ((Syringe))*) 4 mg IV Q4H PRN PRN Reason: PAIN Last Admin: 10/11/17 17:20 Dose: 4 mg Ondansetron HCl (Zofran Inj*) 4 mg IV Q4H PRN PRN Reason: NAUSEA/VOMITING Last Admin: 10/11/17 02:49 Dose: 4 mg Oxycodone/Acetaminophen (Percocet 5/325 Tab*) 2 tab PO Q4H PRN PRN Reason: PAIN Last Admin: 10/12/17 03:50 Dose: 2 tab Vital Signs - 8 hr 10/12/17 10/12/17 10/12/17 11:16 11:28 12:20 Temperature 99.2 F Pulse Rate 108 Respiratory 20 16 20 Rate Blood Pressure 131/85 (mmHg) O2 Sat by Pulse 92 Oximetry 10/12/17 10/12/17 10/12/17 15:32 15:51 16:30 Temperature 99.8 F Pulse Rate 114 Respiratory 22 18 22 Rate Blood Pressure 156/75 (mmHg) O2 Sat by Pulse 96 Oximetry Oxygen Devices in Use Now: Nasal Cannula Appearance: appers comfortable resting in bed, limited eye contact. Ears/Nose/Mouth/Throat: NL Teeth, Lips, Gums, Mucous Membranes Moist Neck: NL Appearance and Movements; NL JVP, Trachea Midline Respiratory: Symmetrical Chest Expansion and Respiratory Effort, Clear to Auscultation, - - few scattered exp wheezes Cardiovascular: NL Sounds; No Murmurs; No JVD, No Edema Abdominal: - - lower abd tenderness, BS+ X4 Extremities: No Edema, No Clubbing, Cyanosis Skin: No Rash or Ulcers Neurological: Alert and Oriented x 3 Nutrition: Taking PO's Result Diagrams: 10/12/17 06:03 10/12/17 06:03 Additional Lab and Data: Lab Results 10/08/17 Range/Units 07:32 POC Glucose (mg/dL) 266 H (70-100) mg/dL Microbiology and Other Data: Microbiology 10/08/17 10:39 Aerobic Blood Culture - Preliminary Blood Venous No Growth Day 4 Anaerobic Blood Culture - Preliminary No Growth Day 4 10/08/17 08:54 Aerobic Blood Culture - Preliminary Blood Venous No Growth Day 4 Anaerobic Blood Culture - Preliminary No Growth Day 4 10/08/17 08:41 Urine Culture - Final Urine No Growth (<1,000 CFU/mL) Assess/Plan/Problems-Billing Assessment: Ms. Jovel is a 37 y.o female with a past medical history significant for DM and htn who presented to the ER for evaluation of fever and chills n/v, found to be septic with a WBC count of 25,000. Patient had a CT of the pelvis that showed a large pelvic mass, and [facility] [employer] [facility] [facility] was consulted. - Patient Problems (1) Sepsis Current Visit: Yes Status: Acute Comment: Temp 99.8 today will continue IV antibiotcs- zosyn and doxycycline no clear source of the cause of her sepsis Urine culture - negative Blood cultures negative CXR and CTA of the Chest - negative for PE and pneumonia Patient with a 19.3 WBC today- afebrile Source could be possible abscess right ovary - [facility] [facility] was consulted - today recommeded consulted IR- case discussed with IR would did not see any Dx valve of attempting to drain right ovarian mass as there was no fluid collection. mechanics handyman also recommeded transfering this patient to a high level of care where she could be evaluated by [facility]/oncology for possible surgical intervention. - this was discussed with the patient ant her . patient is currently declining transfer to another facility. (2) Pelvic mass Current Visit: Yes Status: Acute Code(s): R19.00 - INTRA-ABD AND PELVIC SWELLING, MASS AND LUMP, UNSP SITE SNOMED Code(s): 29742074 Comment: Source could be possible abscess of right ovary or cancer mass- [facility] [facility] was consulted - today recommeded consulted IR- case discussed with IR would did not see any Dx valve of attempting to drain right ovarian mass as there was no fluid collection. mechanics handyman also recommeded transfering this patient to a high level of care where she could be evaluated by [facility]/oncology for possible surgical intervention. - this was discussed with the patient ant her . patient is currently declining transfer to another facility. (3) Diabetes Current Visit: Yes Status: Acute Code(s): E11.9 - TYPE 2 DIABETES MELLITUS WITHOUT COMPLICATIONS SNOMED Code(s): 27779167 Comment: continue lispro and lantus fingersticks hold metformin while in the hospital (4) HTN (hypertension) Current Visit: Yes Status: Acute Code(s): I10 - ESSENTIAL (PRIMARY) HYPERTENSION SNOMED Code(s): 64928334 Comment: BP medications help d/t sepsis on admission - SBP 136 today- stable - could consider restarting nifedipine (5) DVT prophylaxis Current Visit: Yes Status: Acute Code(s): MHS2121 - SNOMED Code(s): 959771969 Comment: HSQ (6) Full code status Current Visit: Yes Status: Acute Code(s): Z78.9 - OTHER SPECIFIED HEALTH STATUS SNOMED Code(s): 646033143 Status and Disposition: inpatient
[2017-10-12] MEDS: Insulin GLARGINE(*) 1 UNITS UNIT SUBCUT SCH (20:02)
[2017-10-13] MEDS: HYDROmorphone INJ* 0.5 MG/0.5 ML SYRINGE IV SLOW PU PRN ×4 (00:50→10:11)
[2017-10-13] MEDS: Ondansetron INJ* 2 MG/ML VIAL IV PRN ×2 (01:01→20:36)
[2017-10-13] MEDS: Benzonatate CAP* 100 MG PO PRN ×3 (01:02→20:26)
[2017-10-13] MEDS: Acetaminophen TAB* 325 MG PO PRN (01:53)
[2017-10-13] MEDS: DOXYcycline IV* 100 MG in NS 0.9% 250 ML* 250 ML IVPB SCH ×2 (01:57→13:24)
[2017-10-13] MEDS: Heparin VIAL(*) 5000 UNITS/ML VIAL (FIVE THOUSAND) SUBCUT SCH ×3 (05:09→20:28)
[2017-10-13 05:47] LABS: Hematocrit 31 % (35-47); Hemoglobin 10.8 g/dl (12.0-16.0); Mean Corpuscular HGB Conc 35 g/dl (31-36); Mean Corpuscular Hemoglobin 30 pg (27-31); Mean Corpuscular Volume 86 fL (80-97); Platelet Count 339 10^3/ul (150-450); Red Blood Count 3.63 10^6/ul (4.00-5.40); Red Cell Distribution Width 14 % (10.5-15); White Blood Count 18.5 10^3/ul (3.5-10.8)
[2017-10-13 06:39] LABS: ABS Basophils 0 10^3/ul (0-0.2); ABS Neutrophils 14.6 10^3/ul (1.5-7.7); ABS Neutrophils 15.4 10^3/ul (1.5-7.7); Monocytes % 4 % (0-7)
[2017-10-13] MEDS: Piperacillin/Tazobac ADVAN(*) 3.375 GM in NS 0.9% 100 ML* 100 ML IVPB SCH ×2 (07:43→15:39)
[2017-10-13] MEDS: Famotidine TAB* 20 MG PO SCH (07:43)
[2017-10-13] MEDS: KCL 20 MEQ/100 ML IVPREMIX* 20 MEQ/100 ML BAG IV SCH ×2 (08:53→11:04)
[2017-10-13] MEDS: Insulin LISPRO* 1 UNITS UNIT SUBCUT SCH ×3 (08:53→17:43)
[2017-10-13] MEDS: oxyCODONE/Acetamin 5/325 MG* TAB PO PRN ×4 (09:12→22:25)
[2017-10-13] MEDS ORDERED: Magnesium Sulfate 2 GM IV* 2 GM/50 ML BAG IV ONE (10:59)
[2017-10-13] MEDS: guaiFENesin LIQ* 100 MG/5 ML UDC PO PRN (11:03)
--- NOTE | 2017-10-13 12:01 | PN ---
Progress Note - Progress Note Date of Service: 10/13/17 SOAP: Subjective: [Pt doing a little better/ less pain per patient] Objective: [T; 98.0 BP 124/70 const: pleasant female/ coughing at bedside abdomen: obese/ no guarding no rebound ] Assessment: [PT 37 yo type I DM, morbid obesity, pelvic abscess with improving fevers and less pain.] Plan: [Recheck pelvic US to see if any change or response to IV by decrease in size Remove Stark and encourage more activity. Decrease IV pain meds. Reviewed with covering hospitalist.]
--- NOTE | 2017-10-13 12:29 | RAD ---
HISTORY: pelvic mass/recheck COMPARISONS: MRI dated October 10, 2012, ultrasound dated October 08, 2017 TECHNIQUE: Multiple transverse and longitudinal ultrasound images were obtained left hemipelvis using grayscale and color Doppler imaging. FINDINGS: Again noted is a complex cystic and solid mass of the left hemipelvis measuring 8.4 x 8.4 x 7.7 cm in size. No Doppler imaging is submitted of this mass. This is similar in size and appearance to the October 10, 2017 examination accounting for differences in technique. There is a moderate amount of pelvic ascites. IMPRESSION: 1. PERSISTENT COMPLEX CYSTIC AND SOLID MASS OF THE LEFT HEMIPELVIS. 2. ASCITES.
--- NOTE | 2017-10-13 16:00 | PN ---
Subjective Date of Service: 10/13/17 Interval History: . patient reports she feels better for the first time today reporting she has less pain, feels more awake and less fatigued. Reports a generalized sense of weakness and states she hasnt ambulated out of bed much since admission. She reports cough with thick sputum reporting she has had this cough for "8 years". Denies fever/chills. patient now agrees to be transferred if required. She reports she was stressed about her insurance, money and being further from her . She shows good insight into her condition. She apologizes for being upset yesterday. She denies suicidal ideation or depression reporting she just feels that she is stressed and under a lot of pressure. She is supposed to move to [place] next week. Family History: Unchanged from Admission Social History: Unchanged from Admission Past Medical History: Unchanged from Admission Objective Active Medications: Acetaminophen (Tylenol Tab*) 650 mg PO Q6H PRN PRN Reason: pain/fever Last Admin: 10/13/17 01:53 Dose: 650 mg Albuterol (Ventolin 2.5 Mg/3 Ml Neb.Lizbeth*) 2.5 mg INH Q4H PRN PRN Reason: SOB/WHEEZING Last Admin: 10/10/17 19:53 Dose: 2.5 mg Benzonatate (Tessalon Cap*) 100 mg PO BID PRN PRN Reason: COUGH Last Admin: 10/13/17 11:03 Dose: 100 mg Dextrose (D50w Syringe 50 Ml*) 12.5 gm IV PUSH .FOR FS < 60 - SS PRN PRN Reason: FS < 60 Famotidine (Pepcid Tab*) 20 mg PO DAILY [facility] Last Admin: 10/13/17 07:43 Dose: 20 mg Guaifenesin (Robitussin*) 5 ml PO Q4H PRN PRN Reason: COUGH Last Admin: 10/13/17 11:03 Dose: 5 ml Heparin Sodium (Porcine) (Heparin Vial(*)) 5,000 units SUBCUT Q8HR [facility] Last Admin: 10/13/17 13:23 Dose: 5,000 units Hydromorphone HCl (Dilaudid Inj1s*) 1 mg IV SLOW PU Q3HR PRN PRN Reason: PAIN Piperacillin Sod/Tazobactam (Sod 3.375 gm/ Sodium Chloride) 100 mls @ 25 mls/ hr IVPB Q8H [facility] Last Admin: 10/13/17 15:39 Dose: 25 mls/hr Doxycycline Hyclate 100 mg/ (Sodium Chloride) 250 mls @ 250 mls/hr IVPB Q12H [facility] Last Admin: 10/13/17 13:24 Dose: 250 mls/hr Ibuprofen (Motrin Tab*) 600 mg PO Q6H PRN PRN Reason: PAIN Last Admin: 10/11/17 00:28 Dose: 600 mg Insulin Glargine (Lantus(*)) 50 units SUBCUT BEDTIME [facility] Last Admin: 10/12/17 20:02 Dose: 50 units Insulin Human Lispro (Humalog*) 0 units SUBCUT AC [facility]; Protocol Last Admin: 10/13/17 12:53 Dose: 6 units Morphine Sulfate (Morphine Inj ((Syringe))*) 4 mg IV Q4H PRN PRN Reason: PAIN Last Admin: 10/12/17 17:07 Dose: 4 mg Ondansetron HCl (Zofran Inj*) 4 mg IV Q4H PRN PRN Reason: NAUSEA/VOMITING Last Admin: 10/13/17 01:01 Dose: 4 mg Oxycodone/Acetaminophen (Percocet 5/325 Tab*) 2 tab PO Q4H PRN PRN Reason: PAIN Last Admin: 10/13/17 13:23 Dose: 2 tab Vital Signs - 8 hr 10/13/17 10/13/17 10/13/17 08:00 08:19 08:59 Temperature 98.0 F Pulse Rate 104 Respiratory 22 18 22 Rate Blood Pressure 124/73 (mmHg) O2 Sat by Pulse 100 Oximetry 10/13/17 10/13/17 10/13/17 09:12 10:11 11:00 Temperature Pulse Rate Respiratory 22 22 20 Rate Blood Pressure (mmHg) O2 Sat by Pulse Oximetry 10/13/17 10/13/17 10/13/17 12:42 13:23 15:47 Temperature 98.0 F Pulse Rate 90 Respiratory 18 20 20 Rate Blood Pressure 100/63 (mmHg) O2 Sat by Pulse 97 Oximetry Oxygen Devices in Use Now: None, OxyMask Appearance: morbidly obese female laying in bed A+O x3 in NAD Eyes: No Scleral Icterus, PERRLA Ears/Nose/Mouth/Throat: NL Teeth, Lips, Gums, Mucous Membranes Moist Neck: NL Appearance and Movements; NL JVP Respiratory: Symmetrical Chest Expansion and Respiratory Effort, Clear to Auscultation Cardiovascular: NL Sounds; No Murmurs; No JVD, RRR, No Edema Abdominal: NL Sounds; No Tenderness; No Distention, - - obese Extremities: No Edema, No Clubbing, Cyanosis Skin: No Rash or Ulcers Neurological: Alert and Oriented x 3, NL Sensation, NL Muscle Strength and Tone Lines/Tubes/Other Access: Clean, Dry and Intact Peripheral IV Nutrition: Taking PO's Result Diagrams: 10/13/17 05:32 10/13/17 05:32 Additional Lab and Data: Lab Results 10/08/17 Range/Units 07:32 POC Glucose (mg/dL) 266 H (70-100) mg/dL Microbiology and Other Data: Microbiology 10/08/17 10:39 Aerobic Blood Culture - Preliminary Blood Venous No Growth Day 4 Anaerobic Blood Culture - Preliminary No Growth Day 4 10/08/17 08:54 Aerobic Blood Culture - Preliminary Blood Venous No Growth Day 4 Anaerobic Blood Culture - Preliminary No Growth Day 4 10/08/17 08:41 Urine Culture - Final Urine No Growth (<1,000 CFU/mL) Assess/Plan/Problems-Billing Assessment: Ms. Jovel is a 37 y.o female with a past medical history significant for DM and htn who presented to the ER for evaluation of fever and chills n/v, found to be septic with a WBC count of 25,000. Patient had a CT of the pelvis that showed a large pelvic mass, and RIDE MECHANIC was consulted. - Patient Problems (1) Sepsis Comment: afebrile throughout the day will continue IV antibiotcs- zosyn and doxycycline Suspect source is cystic pelvis mass - RIDE MECHANIC was consulted - IR did not see any Dx valve of attempting to drain right ovarian mass as there was no fluid collection. Discussed with RIDE MECHANIC today Dr. Pizano. Repeat transvaginal ultrasound today showing 2 cm decrease in size. Pt now agrees to transfer but RIDE MECHANIC ok with hold off for transfer now as she is now ofr the aminta time showing signs of improvement. Will ask ID to see patient on Sunday Urine culture - negative Blood cultures negative CXR and CTA of the Chest - negative for PE and pneumonia Leukocytosis stable but still elevated Discussed sending HIV with patient and she refuses at this time. (2) Pelvic mass Comment: see above (3) Diabetes Comment: continue lispro and lantus fingersticks hold metformin while in the hospital (4) HTN (hypertension) Comment: - BP medications help d/t sepsis on admission - BP continues to be soft, continue to hold home dose nifedipine (5) DVT prophylaxis Comment: HSQ (6) Full code status Status and Disposition: inpatient. Psych consult canceled after evaluating patient. She is appropriate and has good insight and has capacity. She does not have suicidal ideation.
[2017-10-13] MEDS: HYDROmorphone INJ1* 1 MG/ML SYRINGE IV SLOW PU PRN (20:26)
[2017-10-13] MEDS: guaiFENesin ER TAB 600 MG PO SCH (20:26)
[2017-10-13] MEDS: Insulin GLARGINE(*) 1 UNITS UNIT SUBCUT SCH (20:28)
[2017-10-14] MEDS: Piperacillin/Tazobac ADVAN(*) 3.375 GM in NS 0.9% 100 ML* 100 ML IVPB SCH ×3 (00:17→17:53)
[2017-10-14] MEDS: HYDROmorphone INJ1* 1 MG/ML SYRINGE IV SLOW PU PRN ×2 (00:17→04:43)
[2017-10-14] MEDS: Ondansetron INJ* 2 MG/ML VIAL IV PRN ×3 (00:17→22:39)
[2017-10-14] MEDS: DOXYcycline IV* 100 MG in NS 0.9% 250 ML* 250 ML IVPB SCH ×2 (04:44→22:28)
[2017-10-14] MEDS: Heparin VIAL(*) 5000 UNITS/ML VIAL (FIVE THOUSAND) SUBCUT SCH ×3 (04:44→22:30)
[2017-10-14 07:30] LABS: Hematocrit 34 % (35-47); Hemoglobin 11.2 g/dl (12.0-16.0); Mean Corpuscular HGB Conc 33 g/dl (31-36); Mean Corpuscular Hemoglobin 29 pg (27-31); Mean Corpuscular Volume 87 fL (80-97); Mean Platelet Volume 7.6 um3 (7.4-10.4); Platelet Count 357 10^3/ul (150-450); Red Blood Count 3.92 10^6/ul (4.00-5.40); Red Cell Distribution Width 14 % (10.5-15); White Blood Count 19.4 10^3/ul (3.5-10.8)
[2017-10-14] MEDS: oxyCODONE/Acetamin 5/325 MG* TAB PO PRN ×4 (08:06→22:28)
[2017-10-14] MEDS: guaiFENesin ER TAB 600 MG PO SCH ×2 (08:07→22:29)
[2017-10-14] MEDS: Famotidine TAB* 20 MG PO SCH (08:07)
[2017-10-14] MEDS: Insulin LISPRO* 1 UNITS UNIT SUBCUT SCH ×3 (08:07→17:52)
[2017-10-14 08:17] LABS: ABS Basophils 0.1 10^3/ul (0-0.2); ABS Eosinophils 0.1 10^3/ul (0-0.6); ABS Lymphocytes 1.5 10^3/ul (1.0-4.8); ABS Monocytes 1.4 10^3/ul (0-0.8); ABS Neutrophils 16.2 10^3/ul (1.5-7.7); ABS Nucleated RBC 0 10^3/ul; Eosinophil % 0.4 % (0-6); Lymphocyte % 7.7 % (25-47); Nucleated Red Blood Cells % 0.2
[2017-10-14] MEDS ORDERED: Potassium Chlor TAB* 20 MEQ TAB.ER PO ONE (10:35)
--- NOTE | 2017-10-14 10:37 | PN ---
Subjective Date of Service: 10/14/17 Interval History: Patient reports she is feeling better today overall. Continues to have pelvic/ lower abdominal pain but overall reports it is slightly improved - she reports her pain is 5-6/10 which has been consistent - 2 percocet given this morning worked well. Denies fever and chills. No N/V. Reports her appetite is improving. Reports generalized weakness and is requesting a walker. Family History: Unchanged from Admission Social History: Unchanged from Admission Past Medical History: Unchanged from Admission Objective Active Medications: Acetaminophen (Tylenol Tab*) 650 mg PO Q6H PRN PRN Reason: pain/fever Last Admin: 10/13/17 01:53 Dose: 650 mg Albuterol (Ventolin 2.5 Mg/3 Ml Neb.Lizbeth*) 2.5 mg INH Q4H PRN PRN Reason: SOB/WHEEZING Last Admin: 10/10/17 19:53 Dose: 2.5 mg Benzonatate (Tessalon Cap*) 100 mg PO BID PRN PRN Reason: COUGH Last Admin: 10/13/17 20:26 Dose: 100 mg Dextrose (D50w Syringe 50 Ml*) 12.5 gm IV PUSH .FOR FS < 60 - SS PRN PRN Reason: FS < 60 Famotidine (Pepcid Tab*) 20 mg PO DAILY [facility] Last Admin: 10/14/17 08:07 Dose: 20 mg Guaifenesin (Robitussin*) 5 ml PO Q4H PRN PRN Reason: COUGH Last Admin: 10/13/17 11:03 Dose: 5 ml Guaifenesin (Mucinex*) 600 mg PO BID [facility] Last Admin: 10/14/17 08:07 Dose: 600 mg Heparin Sodium (Porcine) (Heparin Vial(*)) 5,000 units SUBCUT Q8HR [facility] Last Admin: 10/14/17 04:44 Dose: 5,000 units Hydromorphone HCl (Dilaudid Inj1s*) 1 mg IV SLOW PU Q3HR PRN PRN Reason: PAIN Last Admin: 10/14/17 04:43 Dose: 1 mg Piperacillin Sod/Tazobactam (Sod 3.375 gm/ Sodium Chloride) 100 mls @ 25 mls/ hr IVPB Q8H [facility] Last Admin: 10/14/17 08:07 Dose: 25 mls/hr Doxycycline Hyclate 100 mg/ (Sodium Chloride) 250 mls @ 250 mls/hr IVPB Q12HR@ 0500,1700 [facility] Last Admin: 10/14/17 04:44 Dose: 250 mls/hr Ibuprofen (Motrin Tab*) 600 mg PO Q6H PRN PRN Reason: PAIN Last Admin: 10/11/17 00:28 Dose: 600 mg Insulin Glargine (Lantus(*)) 50 units SUBCUT BEDTIME [facility] Last Admin: 10/13/17 20:28 Dose: 50 units Insulin Human Lispro (Humalog*) 0 units SUBCUT AC [facility]; Protocol Last Admin: 10/14/17 08:07 Dose: 3 units Morphine Sulfate (Morphine Inj ((Syringe))*) 4 mg IV Q4H PRN PRN Reason: PAIN Last Admin: 10/12/17 17:07 Dose: 4 mg Ondansetron HCl (Zofran Inj*) 4 mg IV Q4H PRN PRN Reason: NAUSEA/VOMITING Last Admin: 10/14/17 04:43 Dose: 4 mg Oxycodone/Acetaminophen (Percocet 5/325 Tab*) 2 tab PO Q4H PRN PRN Reason: PAIN Last Admin: 10/14/17 08:06 Dose: 2 tab Vital Signs - 8 hr 10/14/17 10/14/17 10/14/17 04:24 04:43 05:45 Temperature 97.2 F Pulse Rate 109 Respiratory 20 24 22 Rate Blood Pressure 126/85 (mmHg) O2 Sat by Pulse 94 Oximetry 10/14/17 10/14/17 10/14/17 07:29 08:00 08:06 Temperature 97.7 F Pulse Rate 106 Respiratory 26 22 20 Rate Blood Pressure 129/75 (mmHg) O2 Sat by Pulse 98 Oximetry Oxygen Devices in Use Now: None Appearance: obese 37 yo female A+Ox3 - appears to be in mild pain discomfort Eyes: No Scleral Icterus, PERRLA Ears/Nose/Mouth/Throat: NL Teeth, Lips, Gums, Mucous Membranes Moist Neck: NL Appearance and Movements; NL JVP Respiratory: Symmetrical Chest Expansion and Respiratory Effort, Clear to Auscultation Cardiovascular: NL Sounds; No Murmurs; No JVD, RRR, No Edema Abdominal: - - obese. RLQ tenderness, no guarding. soft. NL BS Extremities: No Edema, No Clubbing, Cyanosis Skin: No Rash or Ulcers, No Nodules or Sclerosis Neurological: Alert and Oriented x 3, NL Sensation, NL Muscle Strength and Tone Lines/Tubes/Other Access: Clean, Dry and Intact Peripheral IV Nutrition: Taking PO's Result Diagrams: 10/14/17 07:13 10/14/17 07:13 Additional Lab and Data: Lab Results 10/08/17 Range/Units 07:32 POC Glucose (mg/dL) 266 H (70-100) mg/dL Microbiology and Other Data: Microbiology 10/08/17 10:39 Aerobic Blood Culture - Preliminary Blood Venous No Growth Day 4 Anaerobic Blood Culture - Preliminary No Growth Day 4 10/08/17 08:54 Aerobic Blood Culture - Preliminary Blood Venous No Growth Day 4 Anaerobic Blood Culture - Preliminary No Growth Day 4 10/08/17 08:41 Urine Culture - Final Urine No Growth (<1,000 CFU/mL) Assess/Plan/Problems-Billing Assessment: Ms. Jovel is a 37 y.o female with a past medical history significant for DM and htn who presented to the ER for evaluation of fever and chills n/v, found to be septic with a WBC count of 25,000. Patient had a CT of the pelvis that showed a large pelvic mass, and DRIER TAKE OFF TENDER was consulted. - Patient Problems (1) Sepsis Comment: Resolved afebrile for 24 hours - fever curve improving. clinically is improving, started to feel better 10/13. will continue IV antibiotcs- zosyn and doxycycline - await ID consult Sunday Suspect source is cystic pelvis mass - DRIER TAKE OFF TENDER was consulted - IR did not see any Dx value of attempting to drain right ovarian mass as there was no fluid collection. Discussed with DRIER TAKE OFF TENDER Dr. Pizano. Repeat transvaginal ultrasound showing 2 cm decrease in size. Pt now agrees to transfer but DRIER TAKE OFF TENDER ok with hold off for transfer now as she is now for the first time showing signs of improvement. Urine culture - negative Blood cultures negative CXR and CTA of the Chest - negative for PE and pneumonia Leukocytosis stable but still elevated. CRP trending down Discussed sending HIV with patient and she refuses at this time. (2) Pelvic mass Comment: see above (3) Diabetes Comment: continue lispro and lantus fingersticks hold metformin while in the hospital (4) HTN (hypertension) Comment: - BP medications help d/t sepsis on admission - restart nifedipine in am (5) DVT prophylaxis Comment: HSQ (6) Full code status Status and Disposition: inpatient. Psych consult canceled after evaluating patient. She is appropriate and has good insight and has capacity. She does not have suicidal ideation.
--- NOTE | 2017-10-14 11:22 | PN ---
Progress Note - Progress Note Date of Service: 10/14/17 Note: S : pt doing much better/brighter O Tmax 24 hr 100.6 Tnow: 97.7 P : 106 Const: alert oriented / NAD Abdomen: obese/nontender no rebound Ext: non tender no erythema CRP: 169.54 POC: 153 TVUS: decreased measurement by ~2 cm of pelvic mass A/P: Pt with pelvic abscess improved gradually. Pt to continue with IV antibiotics for now .Convert to oral pain medication and ambulate hallway today. Pt doing better without Stark. Plan on on consult ID would consider conversion to oral antibiotics if afebrile.
[2017-10-14] MEDS ORDERED: Magnesium Sulfate 2 GM IV* 2 GM/50 ML BAG IVPB ONE (12:00)
[2017-10-14] MEDS ORDERED: HYDROmorphone INJ1* 1 MG/ML SYRINGE IV SLOW PU SCH (14:00)
[2017-10-14] MEDS: Insulin GLARGINE(*) 1 UNITS UNIT SUBCUT SCH (22:30)
[2017-10-14] MEDS: Benzonatate CAP* 100 MG PO PRN (22:39)
[2017-10-15] MEDS: Piperacillin/Tazobac ADVAN(*) 3.375 GM in NS 0.9% 100 ML* 100 ML IVPB SCH ×3 (00:21→16:14)
[2017-10-15] MEDS: oxyCODONE/Acetamin 5/325 MG* TAB PO PRN ×4 (05:18→18:19)
[2017-10-15] MEDS: DOXYcycline IV* 100 MG in NS 0.9% 250 ML* 250 ML IVPB SCH ×2 (05:20→17:27)
[2017-10-15] MEDS: Heparin VIAL(*) 5000 UNITS/ML VIAL (FIVE THOUSAND) SUBCUT SCH ×3 (05:20→21:16)
[2017-10-15 06:40] LABS: Hematocrit 33 % (35-47); Hemoglobin 10.7 g/dl (12.0-16.0); Mean Corpuscular HGB Conc 33 g/dl (31-36); Mean Corpuscular Hemoglobin 29 pg (27-31); Mean Corpuscular Volume 87 fL (80-97); Mean Platelet Volume 7.5 um3 (7.4-10.4); Platelet Count 363 10^3/ul (150-450); Red Blood Count 3.74 10^6/ul (4.00-5.40); Red Cell Distribution Width 14 % (10.5-15); White Blood Count 16.2 10^3/ul (3.5-10.8)
[2017-10-15 06:44] LABS: ABS Basophils 0.1 10^3/ul (0-0.2); ABS Eosinophils 0.1 10^3/ul (0-0.6); ABS Lymphocytes 1.6 10^3/ul (1.0-4.8); ABS Monocytes 1.3 10^3/ul (0-0.8); ABS Neutrophils 13.1 10^3/ul (1.5-7.7); ABS Nucleated RBC 0 10^3/ul
[2017-10-15 07:07] LABS: EGFR Non-African American 141.3 (>60)
[2017-10-15] MEDS ORDERED: Magnesium Sulfate 2 GM IV* 2 GM/50 ML BAG IVPB ONE (08:14)
[2017-10-15 08:18] LABS: Monocytes % 10 % (0-7)
[2017-10-15 08:19] LABS: ABS Basophils 0 10^3/ul (0-0.2); ABS Neutrophils 11.5 10^3/ul (1.5-7.7)
[2017-10-15] MEDS: Insulin LISPRO* 1 UNITS UNIT SUBCUT SCH ×3 (08:31→17:26)
[2017-10-15] MEDS: guaiFENesin ER TAB 600 MG PO SCH ×2 (08:32→21:16)
[2017-10-15] MEDS: NIFEdipine ER TAB* 60 MG PO SCH (08:32)
[2017-10-15] MEDS: Famotidine TAB* 20 MG PO SCH (08:32)
[2017-10-15] MEDS: Benzonatate CAP* 100 MG PO PRN (08:32)
[2017-10-15] MEDS ORDERED: Potassium Chlor TAB* 20 MEQ TAB.ER PO ONE ×2 (09:00→18:00)
--- NOTE | 2017-10-15 10:36 | PN ---
Subjective Date of Service: 10/15/17 Interval History: Patient reports she continues to feels better daily in the last few days she feels that she "turned the corner". She denies fever/chills overnight. Denies N/ V. reports good appetite. Pain improved yesterday during the day off IV diluadid then overnight she felt the pain was worse. Currently she reports it is under control. Continues to have a cough with some white occasional sputum. Cough sounds dry. 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 Denies every having PFT's and no dx of asthma. Family History: Unchanged from Admission Social History: Unchanged from Admission Past Medical History: Unchanged from Admission Objective Active Medications: Acetaminophen (Tylenol Tab*) 650 mg PO Q6H PRN PRN Reason: pain/fever Last Admin: 10/13/17 01:53 Dose: 650 mg Albuterol (Ventolin 2.5 Mg/3 Ml Neb.Lizbeth*) 2.5 mg INH Q4H PRN PRN Reason: SOB/WHEEZING Last Admin: 10/10/17 19:53 Dose: 2.5 mg Benzonatate (Tessalon Cap*) 100 mg PO BID PRN PRN Reason: COUGH Last Admin: 10/15/17 08:32 Dose: 100 mg Dextrose (D50w Syringe 50 Ml*) 12.5 gm IV PUSH .FOR FS < 60 - SS PRN PRN Reason: FS < 60 Famotidine (Pepcid Tab*) 20 mg PO DAILY [facility] Last Admin: 10/15/17 08:32 Dose: 20 mg Guaifenesin (Robitussin*) 5 ml PO Q4H PRN PRN Reason: COUGH Last Admin: 10/13/17 11:03 Dose: 5 ml Guaifenesin (Mucinex*) 600 mg PO BID [facility] Last Admin: 10/15/17 08:32 Dose: 600 mg Heparin Sodium (Porcine) (Heparin Vial(*)) 5,000 units SUBCUT Q8HR [facility] Last Admin: 10/15/17 05:20 Dose: 5,000 units Piperacillin Sod/Tazobactam (Sod 3.375 gm/ Sodium Chloride) 100 mls @ 25 mls/ hr IVPB Q8H [facility] Last Admin: 10/15/17 08:31 Dose: 25 mls/hr Doxycycline Hyclate 100 mg/ (Sodium Chloride) 250 mls @ 250 mls/hr IVPB Q12HR@ 0500,1700 [facility] Last Admin: 10/15/17 05:20 Dose: 250 mls/hr Ibuprofen (Motrin Tab*) 600 mg PO Q6H PRN PRN Reason: PAIN Last Admin: 10/11/17 00:28 Dose: 600 mg Insulin Glargine (Lantus(*)) 50 units SUBCUT BEDTIME [facility] Last Admin: 10/14/17 22:30 Dose: 50 units Insulin Human Lispro (Humalog*) 0 units SUBCUT AC [facility]; Protocol Last Admin: 10/15/17 08:31 Dose: 2 units Nifedipine (Procardia Xl Tab*) 60 mg PO DAILY [facility] Last Admin: 10/15/17 08:32 Dose: 60 mg Ondansetron HCl (Zofran Inj*) 4 mg IV Q4H PRN PRN Reason: NAUSEA/VOMITING Last Admin: 10/14/17 22:39 Dose: 4 mg Oxycodone/Acetaminophen (Percocet 5/325 Tab*) 2 tab PO Q4H PRN PRN Reason: PAIN Last Admin: 10/15/17 09:21 Dose: 2 tab Potassium Chloride (Klor Con Er Tab*) 40 meq PO ONCE ONE Stop: 10/15/17 18:01 Vital Signs - 8 hr 10/15/17 10/15/17 10/15/17 03:17 05:18 07:50 Temperature 98.2 F Pulse Rate 101 Respiratory 20 22 20 Rate Blood Pressure 139/78 (mmHg) O2 Sat by Pulse 92 Oximetry 10/15/17 10/15/17 08:08 09:21 Temperature 98.2 F Pulse Rate 101 Respiratory 20 20 Rate Blood Pressure 128/71 (mmHg) O2 Sat by Pulse 92 Oximetry Oxygen Devices in Use Now: None, OxyMask Appearance: morbidly obese female sitting up in a chair in NAD, A+O x3 Eyes: No Scleral Icterus, PERRLA Ears/Nose/Mouth/Throat: NL Teeth, Lips, Gums, Mucous Membranes Moist Neck: NL Appearance and Movements; NL JVP Respiratory: Symmetrical Chest Expansion and Respiratory Effort Cardiovascular: NL Sounds; No Murmurs; No JVD, RRR, No Edema Abdominal: - - obese, soft, nontender, no guarding Extremities: No Edema, No Clubbing, Cyanosis Skin: No Rash or Ulcers, No Nodules or Sclerosis Neurological: Alert and Oriented x 3, NL Sensation, NL Muscle Strength and Tone Lines/Tubes/Other Access: Clean, Dry and Intact Peripheral IV Nutrition: Taking PO's Result Diagrams: 10/15/17 06:16 10/15/17 06:16 Additional Lab and Data: Lab Results 10/08/17 Range/Units 07:32 POC Glucose (mg/dL) 266 H (70-100) mg/dL Microbiology and Other Data: Microbiology 10/08/17 10:39 Aerobic Blood Culture - Preliminary Blood Venous No Growth Day 4 Anaerobic Blood Culture - Preliminary No Growth Day 4 10/08/17 08:54 Aerobic Blood Culture - Preliminary Blood Venous No Growth Day 4 Anaerobic Blood Culture - Preliminary No Growth Day 4 10/08/17 08:41 Urine Culture - Final Urine No Growth (<1,000 CFU/mL) Assess/Plan/Problems-Billing Assessment: Ms. Jovel is a 37 y.o female with a past medical history significant for DM and htn who presented to the ER for evaluation of fever and chills n/v, found to be septic with a WBC count of 25,000. Patient had a CT of the pelvis that showed a large pelvic mass, and UNIT RECEPTIONIST was consulted. - Patient Problems (1) Sepsis Comment: Resolved fever curve improving. afebrile. clinically is improving, started to feel better 10/13. will continue IV antibiotcs- zosyn and doxycycline - await ID consult Sunday/ sun Suspect source is cystic pelvis mass - UNIT RECEPTIONIST was consulted - IR did not see any Dx value of attempting to drain right ovarian mass as there was no fluid collection. Discussed with UNIT RECEPTIONIST Dr. Pizano. Repeat transvaginal ultrasound showing 2 cm decrease in size. Pt now agrees to transfer but UNIT RECEPTIONIST ok with hold off for transfer now as she is now for the first time showing signs of improvement. Urine culture - negative Blood cultures negative CXR and CTA of the Chest - negative for PE and pneumonia Leukocytosis slowly trending down. CRP trending down Discussed sending HIV with patient and she refuses at this time. (2) Pelvic mass Comment: it is suspected at this time it is an abscess. OBGYN is following. The question will be if she will jarrett to see a ONC-UNIT RECEPTIONIST for consult at some point On abdomen MRI - there is a noted liver lesion in the right hepatic lobe which will need further investigation. Pain management - Diluadid IV DC yesterday - transitioning to PO pain control (3) Electrolyte abnormality Comment: replace mg+ and K+ - recheck labs in am (4) History of chronic cough (5) Diabetes Comment: continue lispro and lantus fingersticks hold metformin while in the hospital (6) HTN (hypertension) Comment: - BP medications help d/t sepsis on admission - restart nifedipine in am (7) DVT prophylaxis Comment: HSQ (8) Full code status Status and Disposition: inpatient. Discharge disposition to be determined Psych consult canceled after evaluating patient. She is appropriate and has good insight and has capacity. She does not have suicidal ideation.
--- NOTE | 2017-10-15 17:07 | PN ---
Progress Note - Progress Note Date of Service: 10/15/17 Note: S: pt says she feels much better overall. Pain improved - controlled on PO meds , OOB some. Min nausea but javier reg diet w/out difficulty. AVSS Gen: NAD, sitting in chair Abd: obese, soft, mildly tender in lower abdomen Ext: no edema of calf tenderness A: Pt with TOA on IV abx - improving significantly over past 24hrs. TOA smaller on f/u sono. P: Await ID consult and recommendations for abx and possible switch to PO. Cont PO pain management. Management of DM and HTN per hospitalist service.
[2017-10-15] MEDS: Insulin GLARGINE(*) 1 UNITS UNIT SUBCUT SCH (21:16)
[2017-10-15] MEDS: Ibuprofen TAB* 600 MG PO PRN (21:21)
[2017-10-16] MEDS: oxyCODONE/Acetamin 5/325 MG* TAB PO PRN ×4 (00:07→20:54)
[2017-10-16] MEDS: Piperacillin/Tazobac ADVAN(*) 3.375 GM in NS 0.9% 100 ML* 100 ML IVPB SCH ×3 (00:07→16:06)
[2017-10-16] MEDS: DOXYcycline IV* 100 MG in NS 0.9% 250 ML* 250 ML IVPB SCH ×2 (04:36→17:38)
[2017-10-16] MEDS: Heparin VIAL(*) 5000 UNITS/ML VIAL (FIVE THOUSAND) SUBCUT SCH ×3 (05:52→20:55)
[2017-10-16] MEDS: Insulin LISPRO* 1 UNITS UNIT SUBCUT SCH ×3 (08:23→17:38)
[2017-10-16] MEDS: NIFEdipine ER TAB* 60 MG PO SCH (08:40)
[2017-10-16] MEDS: Famotidine TAB* 20 MG PO SCH (08:40)
[2017-10-16] MEDS: guaiFENesin ER TAB 600 MG PO SCH ×2 (08:40→20:54)
[2017-10-16 13:29] LABS: Hematocrit 34 % (35-47); Hemoglobin 11.1 g/dl (12.0-16.0); Mean Corpuscular HGB Conc 33 g/dl (31-36); Mean Corpuscular Hemoglobin 28 pg (27-31); Mean Corpuscular Volume 87 fL (80-97); Platelet Count 359 10^3/ul (150-450); Red Blood Count 3.93 10^6/ul (4.00-5.40); Red Cell Distribution Width 14 % (10.5-15); White Blood Count 14.8 10^3/ul (3.5-10.8)
[2017-10-16 13:45] LABS: EGFR Non-African American 121.2 (>60)
[2017-10-16 14:06] LABS: ABS Basophils 0.1 10^3/ul (0-0.2); ABS Eosinophils 0.1 10^3/ul (0-0.6); ABS Lymphocytes 1.7 10^3/ul (1.0-4.8); ABS Monocytes 1.1 10^3/ul (0-0.8); ABS Neutrophils 11.8 10^3/ul (1.5-7.7); ABS Nucleated RBC 0 10^3/ul; Eosinophil % 0.5 % (0-6); Lymphocyte % 11.6 % (25-47); Nucleated Red Blood Cells % 0.1
[2017-10-16] MEDS ORDERED: Magnesium Sulfate 2 GM IV* 2 GM/50 ML BAG IVPB ONE (14:13)
[2017-10-16] MEDS: Cyclobenzaprine TAB* 10 MG PO PRN ×2 (14:52→20:54)
--- NOTE | 2017-10-16 16:40 | PN ---
Subjective Date of Service: 10/16/17 Interval History: Patient having rather severe spasming back pain which she feels not- infrequently at home. Has diminishing abdominal pain. Intermittent SOB. Euthymic. Feels cold occasionally but no rigors or fevers. Denies CP, N/V, dysuria, dizziness, palpitations, or other pain. Was previously on control many years ago. Family History: Unchanged from Admission Social History: Unchanged from Admission Past Medical History: Unchanged from Admission Objective Active Medications: Acetaminophen (Tylenol Tab*) 650 mg PO Q6H PRN PRN Reason: pain/fever Last Admin: 10/13/17 01:53 Dose: 650 mg Albuterol (Ventolin 2.5 Mg/3 Ml Neb.Lizbeth*) 2.5 mg INH Q4H PRN PRN Reason: SOB/WHEEZING Last Admin: 10/10/17 19:53 Dose: 2.5 mg Benzonatate (Tessalon Cap*) 100 mg PO BID PRN PRN Reason: COUGH Last Admin: 10/15/17 08:32 Dose: 100 mg Cetirizine HCl (Zyrtec*) 10 mg PO DAILY [facility]; Protocol Cyclobenzaprine HCl (Flexeril Tab*) 10 mg PO TID PRN PRN Reason: SPASMS Last Admin: 10/16/17 14:52 Dose: 10 mg Dextrose (D50w Syringe 50 Ml*) 12.5 gm IV PUSH .FOR FS < 60 - SS PRN PRN Reason: FS < 60 Famotidine (Pepcid Tab*) 20 mg PO DAILY [facility] Last Admin: 10/16/17 08:40 Dose: 20 mg Guaifenesin (Robitussin*) 5 ml PO Q4H PRN PRN Reason: COUGH Last Admin: 10/13/17 11:03 Dose: 5 ml Guaifenesin (Mucinex*) 600 mg PO BID [facility] Last Admin: 10/16/17 08:40 Dose: 600 mg Heparin Sodium (Porcine) (Heparin Vial(*)) 5,000 units SUBCUT Q8HR [facility] Last Admin: 10/16/17 14:08 Dose: 5,000 units Piperacillin Sod/Tazobactam (Sod 3.375 gm/ Sodium Chloride) 100 mls @ 25 mls/ hr IVPB Q8H [facility] Last Admin: 10/16/17 16:06 Dose: 25 mls/hr Doxycycline Hyclate 100 mg/ (Sodium Chloride) 250 mls @ 250 mls/hr IVPB Q12HR@ 0500,1700 [facility] Last Admin: 10/16/17 04:36 Dose: 250 mls/hr Ibuprofen (Motrin Tab*) 600 mg PO Q6H PRN PRN Reason: PAIN Last Admin: 10/15/17 21:21 Dose: 600 mg Insulin Glargine (Lantus(*)) 50 units SUBCUT BEDTIME [facility] Last Admin: 10/15/17 21:16 Dose: 50 units Insulin Human Lispro (Humalog*) 0 units SUBCUT AC [facility]; Protocol Last Admin: 10/16/17 12:17 Dose: 3 units Nifedipine (Procardia Xl Tab*) 60 mg PO DAILY [facility] Last Admin: 10/16/17 08:40 Dose: 60 mg Ondansetron HCl (Zofran Inj*) 4 mg IV Q4H PRN PRN Reason: NAUSEA/VOMITING Last Admin: 10/14/17 22:39 Dose: 4 mg Oxycodone/Acetaminophen (Percocet 5/325 Tab*) 2 tab PO Q4H PRN PRN Reason: PAIN Last Admin: 10/16/17 14:07 Dose: 2 tab Vital Signs - 8 hr 10/16/17 10/16/17 10/16/17 08:40 10:55 11:33 Temperature 97.8 F Pulse Rate 94 Respiratory 18 18 20 Rate Blood Pressure 110/63 (mmHg) O2 Sat by Pulse 93 Oximetry 10/16/17 10/16/17 10/16/17 14:07 14:52 15:23 Temperature 98.2 F Pulse Rate 107 Respiratory 20 18 22 Rate Blood Pressure 143/75 (mmHg) O2 Sat by Pulse 93 Oximetry 10/16/17 16:07 Temperature Pulse Rate Respiratory 16 Rate Blood Pressure (mmHg) O2 Sat by Pulse Oximetry Oxygen Devices in Use Now: None Appearance: Patient is a 37yo female who appears stated age and is sitting in the bed in NAD. Eyes: No Scleral Icterus, PERRLA Ears/Nose/Mouth/Throat: NL Teeth, Lips, Gums, Clear Oropharnyx, Mucous Membranes Moist Neck: NL Appearance and Movements; NL JVP, Trachea Midline Respiratory: Symmetrical Chest Expansion and Respiratory Effort, Clear to Auscultation Cardiovascular: NL Sounds; No Murmurs; No JVD, RRR, No Edema Abdominal: NL Sounds; No Tenderness; No Distention, No Hepatosplenomegaly, - - Tenderness to palpation over LLQ. Lymphatic: No Cervical Adenopathy Extremities: No Edema, No Clubbing, Cyanosis Skin: No Rash or Ulcers, No Nodules or Sclerosis Neurological: Alert and Oriented x 3, NL Sensation, NL Muscle Strength and Tone , - - CN II-XII intact. Result Diagrams: 10/16/17 13:23 10/16/17 13:23 Additional Lab and Data: Lab Results Microbiology and Other Data: Microbiology 10/08/17 10:39 Aerobic Blood Culture - Preliminary Blood Venous No Growth Day 4 Anaerobic Blood Culture - Preliminary No Growth Day 4 10/08/17 08:54 Aerobic Blood Culture - Preliminary Blood Venous No Growth Day 4 Anaerobic Blood Culture - Preliminary No Growth Day 4 10/08/17 08:41 Urine Culture - Final Urine No Growth (<1,000 CFU/mL) Assess/Plan/Problems-Billing Assessment: Ms. Jovel is a 37 y.o female with a past medical history significant for DM and htn who presented to the ER for evaluation of fever and chills n/v, found to be septic with a WBC count of 25,000. Patient had a CT of the pelvis that showed a large pelvic mass, and WATER MAIN INSTALLER HELPER was consulted. Patient has had incremental improvement. - Patient Problems (1) Sepsis Current Visit: Yes Status: Acute Comment: Resolved Afebrile. Clinically is improving, started to feel better 10/13. Will continue IV antibiotcs- zosyn and doxycycline. ID consult Pending. May need longer course of IV antibiotics. Suspect source is cystic pelvis mass. IR did not see any Dx value of attempting to drain right ovarian mass as there was no fluid collection. Repeat transvaginal ultrasound 10/13 showing 2 cm decrease in size. Will need repeat again to ensure continued improvement. Urine culture - negative Blood cultures negative CXR and CTA of the Chest Negative for PE and pneumonia Leukocytosis slowly trending down. CRP trending down Discussed sending HIV with patient and she refuses at this time. (2) Pelvic mass Current Visit: Yes Status: Acute Code(s): R19.00 - INTRA-ABD AND PELVIC SWELLING, MASS AND LUMP, UNSP SITE SNOMED Code(s): 56429496 Comment: It is suspected at this time it is an abscess. OBGYN is following. May need to see a ONC-WATER MAIN INSTALLER HELPER for consult at some point with persistent mass despite antibiotics. Moderate pain control with PO meds. Back pain predominating at this time. (3) Electrolyte abnormality Current Visit: Yes Status: Acute Code(s): E87.8 - OTH DISORDERS OF ELECTROLYTE AND FLUID BALANCE, NEC SNOMED Code(s): 226333012 Comment: Hypomagnesemia and Hypokalemia Replace Mg++ and K+ and recheck labs in AM (4) Diabetes Current Visit: Yes Status: Acute Code(s): E11.9 - TYPE 2 DIABETES MELLITUS WITHOUT COMPLICATIONS SNOMED Code(s): 64793968 Comment: Continue lispro and lantus Fingersticks ACHS Hold Metformin while in the hospital (5) HTN (hypertension) Current Visit: Yes Status: Acute Code(s): I10 - ESSENTIAL (PRIMARY) HYPERTENSION SNOMED Code(s): 94558448 Comment: Normotensive on Nifedipine. (6) History of chronic cough Current Visit: Yes Status: Chronic Code(s): Z87.09 - PERSONAL HISTORY OF OTHER DISEASES OF THE RESPIRATORY SYSTEM SNOMED Code(s): 829035416 Comment: Denies GERD, Not iron deficient, No history of wheezing. Endorses post-nasal drip. Will trial Antihistamine. (7) Liver mass Current Visit: Yes Status: Acute Code(s): R16.0 - HEPATOMEGALY, NOT ELSEWHERE CLASSIFIED SNOMED Code(s): 326904893 Comment: Noted on MRI. Patient predisposed to Hemangioma due to excess estrogen from adiposity, possible PCOS, and previous COntrol Pills. Needs outpatient follow up with possible biopsy. (8) DVT prophylaxis Current Visit: Yes Status: Acute Code(s): PPO6940 - SNOMED Code(s): 801752562 Comment: HSQ (9) Full code status Current Visit: Yes Status: Acute Code(s): Z78.9 - OTHER SPECIFIED HEALTH STATUS SNOMED Code(s): 675133589 Status and Disposition: Inpatient. Discharge disposition to be determined
[2017-10-16] MEDS: Ibuprofen TAB* 600 MG PO PRN (19:12)
[2017-10-16] MEDS: Insulin GLARGINE(*) 1 UNITS UNIT SUBCUT SCH (20:55)
--- NOTE | 2017-10-16 21:04 | PN ---
CC: Dr. Laurita Lema at [facility], [address] [place] [address] PROGRESS NOTE: DATE OF VISIT: 10/16/17 HISTORY: The patient was admitted on 10/08/17 with abdominal pain and fever, initially thought to be urosepsis. Urine culture was negative and the patient was found to have a complex ovarian mass and working diagnosis has been tubo- ovarian abscess. She is steadily improving on IV antibiotics. Her white count is decreasing. It was as high as 25, but today 14.8. She is feeling better. She is awake and alert. Her pain has been decreasing. She has been out of bed to the chair and is walking to the bathroom. On the most recent transvaginal ultrasound, the left-sided pelvic mass measured 8.8 x 8.8 x 7.7. In that report , moderate pelvic ascites is mentioned; however, in the MRI and CAT scan, there is not mention of ascites. On the first ultrasound from 10/08/17, the uterus measured 10.6 x 5 x 4.7. The endometrium was 9 mm. There was no fluid in the cul-de-sac. Right ovary measured 3.8 x 3.2 x 2.4 cm, left ovary measured 10 x 7.5 x 7.5 cm. In the report, it says complex cystic lesion of the left hemipelvis corresponding to the CAT scan findings. PHYSICAL EXAMINATION: The patient has been afebrile. Her glucose has been under good control. Her blood pressure is well managed on the nifedipine. The patient was lying in bed, in no apparent distress. Abdominal Exam: The abdomen is obese, soft. Tenderness to deep palpation in the left lower quadrant. There is no rebound or guarding. There is no rash. Neuro Exam: Alert and oriented x3. Nonfocal. The patient says that Dr. Amin saw her today and is recommending continued IV antibiotics and so that will need to be arranged where she would be able to receive IV antibiotics for as long as he recommends. I explained that I recommend that she makes an appointment with me when she is discharged and that we would be following up the cyst on ultrasound. It can take a long time for a tubo-ovarian abscess to resolve and if it does we would not need to treat further. However, if the cyst does not resolve, I would be referring her to ELECTRICAL TESTER oncologist, so they can determine whether they think that the left ovarian cyst would need to be surgically removed or not. I filled out disability form for the patient with first day of treatment as up until today and we will continue for as long as she needs the IV antibiotics, so day to return to work is to be determined, but she said she needed a form and her employer requested that the form be filled out. [id number]/[facility] #: [id number] MARTY
[2017-10-17] MEDS: Piperacillin/Tazobac ADVAN(*) 3.375 GM in NS 0.9% 100 ML* 100 ML IVPB SCH (00:08)
--- NOTE | 2017-10-17 02:00 | CONS ---
CONSULTATION REPORT: DATE OF CONSULT: 10/16/17 REQUESTING PROVIDER: Sharon Bolden NP CONSULTING SERVICE: Infectious Disease. REASON FOR CONSULTATION: Tubo-ovarian abscess. IMPRESSION: 1. Left tubo-ovarian abscess, large, improving on Zosyn and doxycycline. It could be polymicrobial. There is no drainage possible. 2. Super morbid obesity. 3. Insulin-dependent diabetes. 4. Chronic cough. 5. Liver mass. RECOMMENDATIONS: Because there is a large collection as no drainage possible, I recommend we continue on IV antibiotics for 2 weeks before considering changing the oral antibiotics. She could have a midline placed and continue on ceftriaxone 2 g a day, oral Flagyl and oral doxycycline. She should have a repeat of her trans vaginal US at that point. HISTORY OF PRESENT ILLNESS: This is a 37-year-old woman with morbid obesity and insulin-dependent diabetes, admitted with sudden onset of left pain. She thinks may be the left flank was a little bit painful and left lower pelvis was painful in a couple of days leading up to severe onset of pain, which she came in along with some fever and chills, and decreased appetite. She came into the hospital with a white count of 20,000. She is just febrile to 39.5 and on the day of admission, 10/08/17. She was started on broad-spectrum antibiotics. She had a CT scan that showed the abnormalities as described above. It was further investigated with pelvic ultrasound and MRI. She had been followed by the Gynecology Service. After a week of IV antibiotics, the size of the collection has decreased from about 10 cm to 8 cm. The pain has nearly gone. Her fever and chills are better. Appetite is coming back to life. She has had a cough for a few weeks. CT of the chest was unremarkable. She also was found to have a 7-cm liver lesion, which was suspected to be benign. PAST MEDICAL HISTORY: 1. Insulin-dependent diabetes. 2. Super morbid obesity. 3. Hypertension. 4. History of gallstone pancreatitis. 5. Status post cholecystectomy. ALLERGIES: No known drug allergies. MEDICATIONS: 1. Tylenol. 2. Cetirizine. 3. Flexeril. 4. Doxycycline 100 mg IV every 12 hours. 5. Famotidine. 6. Guaifenesin. 7. Heparin subcutaneous injection. 8. Ibuprofen. 9. Nifedipine. 10. Potassium. 11. Zosyn 3.375 g every 8 hours. SOCIAL HISTORY: She lives with her in [place]. She has no travel or sick contacts. No injection drugs. FAMILY HISTORY: Mother has type 2 diabetes. Father of bone cancer, had type 1 diabetes. REVIEW OF SYSTEMS: All negative except as noted above in the 14-point review of systems. PHYSICAL EXAM: Vital Signs: Temperature is 37, heart rate of 100, respiratory rate 20, blood pressure 131/70, oxygen saturation 98% on room air. In general, she is awake and not in distress. Neurologic: She is oriented x3. Follows all commands. HEENT: There is no conjunctival hemorrhage. Oropharynx without lesions. Neck: Supple without mass. Heart: Regular rate and rhythm without murmurs, rubs or gallops. Lungs: Clear to auscultation bilaterally. Abdomen: Soft, obese, nontender, nondistended. There are bowel sounds present. She has no flank or suprapubic tenderness to palpation. There is no rebound tenderness. Musculoskeletal: There is no spine tenderness to palpation. Skin: There is no rash or splinter hemorrhages. DIAGNOSTIC STUDIES/LAB DATA: White blood cell count 14, hemoglobin 11, platelets 359. Creatinine is 0.5. Cervical swab for chlamydia and gonorrhea are negative. Urinalysis showed protein, leukocyte esterase, white cells, red cells, blood cultures and urine cultures on admission are negative. Please see impression and recommendations as outlined above, which I have discussed with JOSEF Russo. Thanks for asking me to see Ms. Jovel in consultation. [id number]/[facility] #: [id number] MTDD
[2017-10-17] MEDS: DOXYcycline IV* 100 MG in NS 0.9% 250 ML* 250 ML IVPB SCH (04:58)
[2017-10-17] MEDS: Heparin VIAL(*) 5000 UNITS/ML VIAL (FIVE THOUSAND) SUBCUT SCH ×3 (05:00→22:21)
[2017-10-17] MEDS: oxyCODONE/Acetamin 5/325 MG* TAB PO PRN ×4 (05:05→21:00)
[2017-10-17] MEDS: Cyclobenzaprine TAB* 10 MG PO PRN ×3 (05:05→21:01)
[2017-10-17 06:03] LABS: ABS Basophils 0.1 10^3/ul (0-0.2); ABS Eosinophils 0.1 10^3/ul (0-0.6); ABS Lymphocytes 1.2 10^3/ul (1.0-4.8); ABS Monocytes 1.1 10^3/ul (0-0.8); ABS Neutrophils 12.5 10^3/ul (1.5-7.7); ABS Nucleated RBC 0 10^3/ul; Eosinophil % 0.5 % (0-6); Hematocrit 31 % (35-47); Hemoglobin 10.2 g/dl (12.0-16.0); Lymphocyte % 8.1 % (25-47); Mean Corpuscular HGB Conc 33 g/dl (31-36); Mean Corpuscular Hemoglobin 29 pg (27-31); Mean Corpuscular Volume 87 fL (80-97); Mean Platelet Volume 7.3 um3 (7.4-10.4); Nucleated Red Blood Cells % 0.1; Platelet Count 329 10^3/ul (150-450); Red Blood Count 3.58 10^6/ul (4.00-5.40); Red Cell Distribution Width 14 % (10.5-15)
[2017-10-17] MEDS: Insulin LISPRO* 1 UNITS UNIT SUBCUT SCH ×3 (09:10→17:02)
[2017-10-17] MEDS: Famotidine TAB* 20 MG PO SCH (09:10)
[2017-10-17] MEDS: NIFEdipine ER TAB* 60 MG PO SCH (09:10)
[2017-10-17] MEDS: DOXYcycline CAP(*) 100 MG PO SCH ×2 (09:10→21:01)
[2017-10-17] MEDS: Cetirizine* 10 MG TAB PO SCH (09:10)
[2017-10-17] MEDS: guaiFENesin ER TAB 600 MG PO SCH ×2 (09:10→21:00)
[2017-10-17] MEDS: metroNIDAZOLE TAB* 250 MG PO SCH ×2 (09:10→21:01)
[2017-10-17] MEDS: cefTRIAXone(*) 2 GM in NS 0.9% 100 ML* 100 ML IVPB SCH (09:15)
[2017-10-17] MEDS ORDERED: Magnesium Sulfate 2 GM IV* 2 GM/50 ML BAG IVPB ONE (11:12)
--- NOTE | 2017-10-17 12:50 | PN ---
Progress Note - Progress Note Date of Service: 10/17/17 Note: 37 yo with TOA, follow up note Pt states she is improving +flatus. Up and out of bedd . I am told she will be discharged tomorrow and will follow with iv antibiotics as an outpatient Vitals stable / afebrile Abdomen soft / less tender to palpation than when I saw her last week extremities nontender to palpation. Out patient follow up to be done by Dr Lema as per her note Dr Moran's input appreciated Brian Ureña MD
[2017-10-17] MEDS ORDERED: Furosemide IV* 10 MG/ML VIAL (40 MG) IV SLOW PU ONE (15:25)
--- NOTE | 2017-10-17 15:34 | PN ---
Subjective Date of Service: 10/17/17 Interval History: Patient feeling better. Back spasms are diminished significantly with very good response to Muscle Relaxants. Patient states she has been getting SOB with exertion and with back spasms. Patient states this does not usually happen at home. Patient denies cough, F/C, CP, N/V, abdominal pain, dysuria, or other pain. Patient states that she is no longer working and will no longer have insurance as of October 27. Family History: Unchanged from Admission Social History: Unchanged from Admission Past Medical History: Unchanged from Admission Objective Active Medications: Acetaminophen (Tylenol Tab*) 650 mg PO Q6H PRN PRN Reason: pain/fever Last Admin: 10/13/17 01:53 Dose: 650 mg Albuterol (Ventolin 2.5 Mg/3 Ml Neb.Lizbeth*) 2.5 mg INH Q4H PRN PRN Reason: SOB/WHEEZING Last Admin: 10/10/17 19:53 Dose: 2.5 mg Benzonatate (Tessalon Cap*) 100 mg PO BID PRN PRN Reason: COUGH Last Admin: 10/15/17 08:32 Dose: 100 mg Cetirizine HCl (Zyrtec*) 10 mg PO DAILY [facility]; Protocol Last Admin: 10/17/17 09:10 Dose: 10 mg Cyclobenzaprine HCl (Flexeril Tab*) 10 mg PO TID PRN PRN Reason: SPASMS Last Admin: 10/17/17 12:37 Dose: 10 mg Dextrose (D50w Syringe 50 Ml*) 12.5 gm IV PUSH .FOR FS < 60 - SS PRN PRN Reason: FS < 60 Doxycycline Hyclate (Vibramycin Cap(*)) 100 mg PO BID [facility] Last Admin: 10/17/17 09:10 Dose: 100 mg Famotidine (Pepcid Tab*) 20 mg PO DAILY [facility] Last Admin: 10/17/17 09:10 Dose: 20 mg Furosemide (Lasix Iv*) 40 mg IV SLOW PU ONCE ONE Stop: 10/17/17 15:26 Guaifenesin (Robitussin*) 5 ml PO Q4H PRN PRN Reason: COUGH Last Admin: 10/13/17 11:03 Dose: 5 ml Guaifenesin (Mucinex*) 600 mg PO BID [facility] Last Admin: 08/22/18 09:10 Dose: 600 mg Heparin Sodium (Porcine) (Heparin Vial(*)) 5,000 units SUBCUT Q8HR [facility] Last Admin: 10/17/17 14:18 Dose: 5,000 units Ceftriaxone Sodium 2 gm/ (Sodium Chloride) 100 mls @ 200 mls/hr IVPB Q24H [facility] Last Admin: 10/17/17 09:15 Dose: 200 mls/hr Ibuprofen (Motrin Tab*) 600 mg PO Q6H PRN PRN Reason: PAIN Last Admin: 10/16/17 19:12 Dose: 600 mg Insulin Glargine (Lantus(*)) 50 units SUBCUT BEDTIME [facility] Last Admin: 10/16/17 20:55 Dose: 50 units Insulin Human Lispro (Humalog*) 0 units SUBCUT AC [facility]; Protocol Last Admin: 10/17/17 12:37 Dose: 3 units Metronidazole (Flagyl Tab*) 500 mg PO BID [facility] Last Admin: 10/17/17 09:10 Dose: 500 mg Nifedipine (Procardia Xl Tab*) 60 mg PO DAILY [facility] Last Admin: 10/17/17 09:10 Dose: 60 mg Ondansetron HCl (Zofran Inj*) 4 mg IV Q4H PRN PRN Reason: NAUSEA/VOMITING Last Admin: 10/14/17 22:39 Dose: 4 mg Oxycodone/Acetaminophen (Percocet 5/325 Tab*) 2 tab PO Q4H PRN PRN Reason: PAIN Last Admin: 10/17/17 09:11 Dose: 2 tab Vital Signs - 8 hr 10/17/17 10/17/17 10/17/17 08:00 09:11 11:21 Temperature 97.8 F Pulse Rate 103 Respiratory 20 20 20 Rate Blood Pressure 144/77 (mmHg) O2 Sat by Pulse 97 Oximetry 10/17/17 10/17/17 10/17/17 11:51 11:56 12:37 Temperature 97.8 F Pulse Rate 103 Respiratory 20 20 18 Rate Blood Pressure 144/77 (mmHg) O2 Sat by Pulse 97 Oximetry 10/17/17 10/17/17 15:02 15:26 Temperature Pulse Rate Respiratory 18 Rate Blood Pressure (mmHg) O2 Sat by Pulse 94 Oximetry Oxygen Devices in Use Now: OxyMask Appearance: Patient is a 37yo female who appears stated age and is sitting in the bed in NAD. Eyes: No Scleral Icterus, PERRLA Ears/Nose/Mouth/Throat: NL Teeth, Lips, Gums, Clear Oropharnyx, Mucous Membranes Moist Neck: NL Appearance and Movements; NL JVP, Trachea Midline Respiratory: Symmetrical Chest Expansion and Respiratory Effort, Clear to Auscultation Cardiovascular: NL Sounds; No Murmurs; No JVD, RRR, - - Trace LE edema. Abdominal: NL Sounds; No Tenderness; No Distention, No Hepatosplenomegaly Lymphatic: No Cervical Adenopathy Extremities: No Edema Skin: No Nodules or Sclerosis, - - Acanthosis Nigricans at nape of neck. Neurological: Alert and Oriented x 3, NL Sensation, NL Muscle Strength and Tone , - Result Diagrams: 10/17/17 05:49 10/17/17 05:49 Additional Lab and Data: Lab Results Microbiology and Other Data: Microbiology 10/08/17 10:39 Aerobic Blood Culture - Preliminary Blood Venous No Growth Day 4 Anaerobic Blood Culture - Preliminary No Growth Day 4 10/08/17 08:54 Aerobic Blood Culture - Preliminary Blood Venous No Growth Day 4 Anaerobic Blood Culture - Preliminary No Growth Day 4 10/08/17 08:41 Urine Culture - Final Urine No Growth (<1,000 CFU/mL) Assess/Plan/Problems-Billing Assessment: Ms. Jovel is a 37 y.o female with a past medical history significant for DM and htn who presented to the ER for evaluation of fever and chills n/v, found to be septic with a WBC count of 25,000. Patient had a CT of the pelvis that showed a large pelvic mass, and CLUB LOUNGE ATTENDANT was consulted. Patient has had incremental improvement. - Patient Problems (1) Sepsis Current Visit: Yes Status: Acute Comment: Resolved Afebrile. Clinically is improving, started to feel better 10/13. Switch to Ceftriaxone and oral Flagyl/Doxycycline. Suspect source is cystic pelvis mass. IR did not see any Dx value of attempting to drain right ovarian mass as there was no fluid collection. Repeat transvaginal ultrasound 10/13 showing 2 cm decrease in size. Will need repeat again to ensure continued improvement. Urine culture - negative Blood cultures negative CXR and CTA of the Chest Negative for PE and pneumonia Leukocytosis slowly trending down. CRP trending down Discussed sending HIV with patient and she refuses at this time. (2) Acute respiratory failure with hypoxia Current Visit: Yes Status: Acute Code(s): J96.01 - ACUTE RESPIRATORY FAILURE WITH HYPOXIA SNOMED Code(s): 61889178 Comment: Persistent O2 requirement, particularly with activity. Will repeat CXR and trial IV lasix. Possibly due to Obesity Hypoventilation Syndrome. (3) Pelvic mass Current Visit: Yes Status: Acute Code(s): R19.00 - INTRA-ABD AND PELVIC SWELLING, MASS AND LUMP, UNSP SITE SNOMED Code(s): 05019997 Comment: It is suspected at this time it is an abscess. OBGYN is following. May need to see a ONC-CLUB LOUNGE ATTENDANT for consult at some point with persistent mass despite antibiotics. Moderate pain control with PO meds. Back pain predominating at this time. Ceftriaxone IV for at least 2 weeks with oral doxy and flagyl. Will need follow up TVUS. (4) Electrolyte abnormality Current Visit: Yes Status: Acute Code(s): E87.8 - OTH DISORDERS OF ELECTROLYTE AND FLUID BALANCE, NEC SNOMED Code(s): 103153135 Comment: Hypomagnesemia and Hypokalemia Replace Mg++ and recheck labs in AM Hypokalemia resolved. (5) Diabetes Current Visit: Yes Status: Acute Code(s): E11.9 - TYPE 2 DIABETES MELLITUS WITHOUT COMPLICATIONS SNOMED Code(s): 57911939 Comment: Continue lispro and lantus Fingersticks ACHS Hold Metformin while in the hospital (6) HTN (hypertension) Current Visit: Yes Status: Acute Code(s): I10 - ESSENTIAL (PRIMARY) HYPERTENSION SNOMED Code(s): 87117109 Comment: Normotensive on Nifedipine. (7) History of chronic cough Current Visit: Yes Status: Chronic Code(s): Z87.09 - PERSONAL HISTORY OF OTHER DISEASES OF THE RESPIRATORY SYSTEM SNOMED Code(s): 629500665 Comment: Denies GERD, Not iron deficient, No history of wheezing. Endorses post-nasal drip. Will trial Antihistamine. (8) Liver mass Current Visit: Yes Status: Acute Code(s): R16.0 - HEPATOMEGALY, NOT ELSEWHERE CLASSIFIED SNOMED Code(s): 372764532 Comment: Noted on MRI. Patient predisposed to Hemangioma due to excess estrogen from adiposity, possible PCOS, and previous COntrol Pills. Needs outpatient follow up with possible biopsy. (9) DVT prophylaxis Current Visit: Yes Status: Acute Code(s): BUA4955 - SNOMED Code(s): 489580134 Comment: HSQ (10) Full code status Current Visit: Yes Status: Acute Code(s): Z78.9 - OTHER SPECIFIED HEALTH STATUS SNOMED Code(s): 361697367 Status and Disposition: Inpatient. Possible Discharge Tomorrow.
--- NOTE | 2017-10-17 15:50 | RAD ---
HISTORY: Hypoxia, Monitor for Pulmonary Edema. COMPARISONS: 18 VIEWS: 1: frontal portable view of the chest at 3:40 PM FINDINGS: LINES AND TUBES: None. CARDIOMEDIASTINAL SILHOUETTE: The cardiomediastinal silhouette is normal for portable technique. PLEURA: The costophrenic angles are sharp. No pleural abnormalities are noted. LUNG PARENCHYMA: The lung volumes are low. The lungs are clear for the phase of respiration. ABDOMEN: The upper abdomen is clear. There is no subphrenic gas. BONES AND SOFT TISSUES: No bone or soft tissue abnormalities are noted. IMPRESSION: LOW LUNG VOLUMES. NO ACTIVE CARDIOPULMONARY DISEASE.
[2017-10-17] MEDS: Acetaminophen TAB* 325 MG PO PRN (21:00)
[2017-10-17] MEDS: Insulin GLARGINE(*) 1 UNITS UNIT SUBCUT SCH (21:03)
[2017-10-18] MEDS: Heparin VIAL(*) 5000 UNITS/ML VIAL (FIVE THOUSAND) SUBCUT SCH ×2 (05:47→13:03)
[2017-10-18 08:37] LABS: ABS Basophils 0.1 10^3/ul (0-0.2); ABS Eosinophils 0.1 10^3/ul (0-0.6); ABS Lymphocytes 1.6 10^3/ul (1.0-4.8); ABS Nucleated RBC 0 10^3/ul; Eosinophil % 0.3 % (0-6); Hematocrit 32 % (35-47); Hemoglobin 10.5 g/dl (12.0-16.0); Lymphocyte % 10.1 % (25-47); Mean Corpuscular HGB Conc 33 g/dl (31-36); Mean Corpuscular Hemoglobin 29 pg (27-31); Mean Corpuscular Volume 87 fL (80-97); Mean Platelet Volume 7.2 um3 (7.4-10.4); Nucleated Red Blood Cells % 0; Platelet Count 346 10^3/ul (150-450); Red Blood Count 3.65 10^6/ul (4.00-5.40); Red Cell Distribution Width 15 % (10.5-15); White Blood Count 15.8 10^3/ul (3.5-10.8)
[2017-10-18 09:01] LABS: EGFR Non-African American 148.3 (>60)
[2017-10-18] MEDS: Insulin LISPRO* 1 UNITS UNIT SUBCUT SCH ×2 (09:07→13:03)
[2017-10-18] MEDS: guaiFENesin ER TAB 600 MG PO SCH (09:08)
[2017-10-18] MEDS: cefTRIAXone(*) 2 GM in NS 0.9% 100 ML* 100 ML IVPB SCH (09:08)
[2017-10-18] MEDS: Cetirizine* 10 MG TAB PO SCH (09:08)
[2017-10-18] MEDS: Famotidine TAB* 20 MG PO SCH (09:08)
[2017-10-18] MEDS: metroNIDAZOLE TAB* 250 MG PO SCH (09:08)
[2017-10-18] MEDS: DOXYcycline CAP(*) 100 MG PO SCH (09:08)
[2017-10-18] MEDS: NIFEdipine ER TAB* 60 MG PO SCH (09:19)
[2017-10-18] MEDS ORDERED: Piperacillin/Tazobac ADVAN(*) 3.375 GM in NS 0.9% 100 ML* 100 ML IVPB ONE (10:09)
[2017-10-18] MEDS ORDERED: Zosyn per Pharmacy* NOTE FOLLOW UP SCH (11:00)
--- NOTE | 2017-10-18 11:20 | PN ---
Progress Note - Progress Note Date of Service: 10/18/17 SOAP: Subjective: CC: abscess HPI: 37 year old woman with left flank pain and fever , both of which are resolved. Energy and appetite are improving each day. Up and walking the floors this am without difficulty. No rash or diarrhea. Objective: Vital Signs Temp 36.8 C 10/18/17 04:30 Pulse 101 10/18/17 04:30 Resp 24 10/18/17 04:30 BP 127/67 10/18/17 04:30 Pulse Ox 93 10/18/17 04:30 Intake & Output 10/17/17 10/18/17 10/18/17 18:59 06:59 18:59 Intake Total 1595 500 Output Total 200 0 Balance 1395 500 Intake: IVPB 165 Ceftriaxone 110 Mag 55 Oral 1430 500 Output: Urine 200 0 Other: # Bowel Movements 2 Estimated Stool Amount Medium Gen:awake, no distress HEENT: no thrush Heart:RRR no murmur Lungs:CTA BL Abd:+BS NTND soft Skin: no rash MSK: no spine tenderness Laboratory Results - last 24 hr 10/17/17 10/17/17 10/18/17 11:49 16:57 07:56 WBC RBC Hgb Hct MCV MCH MCHC RDW Plt Count MPV Neut % (Auto) Lymph % (Auto) Graham % (Auto) Eos % (Auto) Baso % (Auto) Absolute Neuts (auto) Absolute Lymphs (auto) Absolute Monos (auto) Absolute Eos (auto) Absolute Basos (auto) Absolute Nucleated RBC Nucleated RBC % Sodium Potassium Chloride Carbon Dioxide Anion Gap BUN Creatinine Est GFR ( Amer) Est GFR (Non-Af Amer) BUN/Creatinine Ratio Glucose POC Glucose (mg/dL) 180 H 113 H 147 H Calcium C-Reactive Protein 10/18/17 10/18/17 08:23 08:23 WBC 15.8 H RBC 3.65 L Hgb 10.5 L Hct 32 L MCV 87 MCH 29 MCHC 33 RDW 15 Plt Count 346 MPV 7.2 L Neut % (Auto) 82.5 Lymph % (Auto) 10.1 L Graham % (Auto) 6.7 Eos % (Auto) 0.3 Baso % (Auto) 0.4 Absolute Neuts (auto) 13.0 H Absolute Lymphs (auto) 1.6 Absolute Monos (auto) 1.0 H Absolute Eos (auto) 0.1 Absolute Basos (auto) 0.1 Absolute Nucleated RBC 0 Nucleated RBC % 0 Sodium 136 Potassium 3.7 Chloride 97 L Carbon Dioxide 32 Anion Gap 7 BUN 6 Creatinine 0.47 L Est GFR ( Amer) 179.4 Est GFR (Non-Af Amer) 148.3 BUN/Creatinine Ratio 12.8 Glucose 134 H POC Glucose (mg/dL) Calcium 8.4 L C-Reactive Protein 135.49 H Assessment: 1. left tubo ovarian abscess; wbc and crp are up but she feels better 2. morbid obesity 3. Diabetes 4. elevated CRP, due to abscess Plan: 1.ceftriaxone 2 gm IV daily w flagyl 500 mg po tid for 21 days w weekly cbc, cmp , crp. She agrees to return here with return of fever or abd/flank pain Discussed w Shanika BAHENA 35 minutes floor time >50% face to face discussing antibiotc plans and monitoring her infection
[2017-10-18 11:21] VITALS: BP 115/67
[2017-10-18] MEDS: oxyCODONE/Acetamin 5/325 MG* TAB PO PRN (13:09)
[2017-10-18] MEDS: Cyclobenzaprine TAB* 10 MG PO PRN (13:09)
[2017-10-18] MEDS: Benzonatate CAP* 100 MG PO PRN (13:17)
[2017-10-18] MEDS ORDERED: ZOSYN 3.375 GM Q8H per EXTENDED INFUSION IVPB SCH ×2 (16:00)
--- NOTE | 2017-10-20 06:30 | DS ---
CC: Laurita Lema MD; Chris Queen NP * DISCHARGE SUMMARY: DATE OF ADMISSION: 10/08/17 DATE OF DISCHARGE: 10/18/17 PRIMARY CARE PROVIDER: Chris Queen NP OUTPATIENT OB-EQUIPMENT TESTER: Laurita Lema MD MY ATTENDING WHILE IN THE HOSPITAL: Patt Lechuga MD * (DICTATED BY JOSEF FLORES) PRIMARY DISCHARGE DIAGNOSES: 1. Tuboovarian abscess with resolved sepsis. 2. Large hepatic mass. 3. Hypoxic respiratory failure likely due to obesity hypoventilation syndrome. SECONDARY DIAGNOSES: 1. Type 2 diabetes. 2. Hypertension. 3. History of gallstone pancreatitis. 4. Chronic back pain. STUDIES DONE WHILE IN THE HOSPITAL: Electrocardiogram from 10/08/17 shows normal sinus rhythm. No ST segment abnormalities, T-wave inversion in V3, no hypertrophy or enlargement, rate of 96, QTc of 441. No other abnormalities. Repeat EKG from 10/09/17 shows no significant changes. Chest x-ray from read as pulmonary vascular congestion. Abdomen and pelvis CT from 10/08/17 read as no hydronephrosis or nephrolithiasis. There is a lobulated mass in the left hemipelvis measuring 8.6 cm in size. The differential includes ovarian neoplasm ,recommended non-contrast CT repeat for further evaluation with ultrasound of the pelvis and/or contrast enhanced MRI of the pelvis. Pelvic transvaginal ultrasound from 10/08/17 read as a complex cystic mass in the left hemipelvis measuring 10.1 cm in size. Corresponding CT finding differential includes left ovarian neoplasm. Recommend further evaluation with contrast enhanced MRI of the pelvis. Transthoracic echocardiogram from 10/08/17 read as left ventricular systolic function at the lower limits of normal, global left ventricular wall motion and contractility within normal limits. Estimated ejection fraction 50% to 65%. No evidence of aortic stenosis. Mild mitral regurgitation, there is trace tricuspid regurgitation, estimated right ventricular systolic pressure, no significant pericardial effusion. Chest and thorax CTA from 10/08/17 read as limited study, no evidence for pulmonary embolism. Questionable liver abnormality, incompletely evaluated by the study. Recommend further evaluation of MRI of the liver with and without contrast. Chest x-ray from 06/13/17 read as hypoventilated exam with subsegmental atelectasis. Abdomen x-ray from 10/09/17 read as nonspecific bowel gas pattern. Abdomen MRI from 10/10/17 read as an indeterminate 7.7 cm lesion of the right hepatic lobe with assessment limited without multiphasic contrast study. The differential includes hepatic adenoma, focal nodular hyperplasia and hemangioma as well as less likely malignant primary lesions and metastatic lesions. Further, multiphasic contrast enhanced MRI of the abdomen suggested indeterminate 8.6 cm maximum dimension complex right ovarian lesion without associated hydrosalpinx or free pelvic fluid inflammatory change to favor tuboovarian abscess. Differential includes germ cell and ovarian epithelial neoplasms. Contrast- enhanced early MRI of the pelvis may be helpful for further characterization. Gynecologic consultation for resection suggested no compelling metastatic implants evidenced in the abdomen and pelvis. The chest x-ray from 10/11/17 read as no active disease. Transvaginal ultrasound from 10/13/17 read as persistent complex cyst and solid mass with left hemipelvis ascites. Chest x-ray from 10/17/17 read as low lung volumes, no active cardiopulmonary disease. MEDICATIONS AT DISCHARGE: 1. Metformin 1000 mg p.o. b.i.d. 2. Lantus 50 units subcutaneous at bedtime. 3. Nifedipine 60 mg p.o. daily. 4. Naproxen 220 mg p.o. daily as needed. 5. Benzonatate 100 mg p.o. b.i.d. 6. Ceftriaxone 2 g daily. 7. Cetirizine 10 mg p.o. daily. 8. Cyclobenzaprine 10 mg p.o. t.i.d. as needed. 9. Flagyl 500 mg p.o. t.i.d. 10. Percocet 5/325 mg 2 tabs p.o. q.4 hours as needed. HOSPITAL COURSE: This is a brief summary of the patient's presentation. For more details, please see the history and physical from Dominga Wilkerson NP on . In brief, the patient is a 37-year-old female with past medical history significant for the above who presented to the hospital with left flank pain, chills and malaise. The patient had long-term discomfort on that side but that began to get suddenly worse on the day before evaluation. She had malaise, rigors and severe flank pain. She had some pressure in her bladder. She has had regular and cramping periods but this does not feel like that. She had 1 miscarriage. In the emergency department, she had significantly elevated CRP, elevated lactic acid, white blood cell count of 25 with bandemia of 14. The patient was not hypoxic. The patient had a CT above concerning for tuboovarian abscess. The patient was admitted to the hospital, was started on Zosyn. Blood cultures were drawn. The patient was given adequate fluid resuscitation. The patient was initially afebrile; however, she was hypotensive and tachycardic. The patient's blood pressure increased with adequate fluid resuscitation; however, she began to become febrile and increasingly tachycardiac throughout the day. The patient had chest and thorax CTA and chest x-ray as above. The patient overnight on 10/08/17 to 10/09/17 had tachypnea, had to be transferred to the ICU for Vapotherm and Lasix. The patient was also started on vancomycin. ABGs showed slight alkalosis, no other abnormalities. The patient was seen in consultation by Dr. Curt Jamil, the pastry assistant. The patient's temperature reached a peak of 104 and decreased with antipyretics and ice packs. The patient was continued on vancomycin and Zosyn. The patient's hemoglobin stayed in normal range or slightly anemic throughout her hospitalization. The patient initially had white blood cell count of 25, which quickly decreased to 15 and trended back up to 19 and then back down to 15 throughout her hospitalization. The patient had slight hyponatremia throughout her hospitalization, particularly initially which resolved spontaneously. The patient was hypomagnesemic throughout her hospitalization as well and was repleted with IV magnesium as well as p.o. magnesium. On multiple occasions, the patient's blood glucose was relatively well controlled throughout her hospitalization. The patient had a negative CA- 125 and FENA, negative beta HCG. The patient was seen in consultation by Dr. Laurita Lema of OB-EQUIPMENT TESTER who believed this was likely due to tuboovarian abscess and added in doxycycline to her current regimen. Gonorrhea and chlamydia test which were negative. The patient during this period needed a short period of BiPAP. The patient's pain and fever began to decrease. On 10/10/17, there was concern that the patient will need to be transferred for incision and drainage of the tuboovarian abscess with concern for ovarian neoplasm; however, initially the patient refused transfer to a higher level of care and then as she was improving, the transfer was no longer deemed essential. This was discussed with Interventional Radiology and they did not see utility in draining the abscess percutaneously. The patient had a repeat chest x-ray as above which showed no infiltrate over this. The patient continued to need up to 5 L of oxygen via mask. The patient during her hospitalization briefly had expressed passive suicidal ideation; however, she recanted this saying she was just upset at that time and no further psychiatric evaluation was recommended. The patient had a repeat transvaginal ultrasound which showed decreased size in the mass, likely showing improvement along with clinical signs of improvement with decreased pain in her abdomen. The patient's vital signs remained stable throughout this time; however, she had soft blood pressures with not on her home nifedipine, so this was held throughout most of her hospitalization. The patient at this point was able to be weaned to room air with oxygen as needed, particularly while ambulating. The patient was able to be weaned off IV antibiotics. The patient had for many weeks before her hospitalization a nonproductive cough but had never been evaluated by credit support specialist. The patient on 10/16/17 was seen in consultation by Dr. Sotero Amin who recommended at discharge a continuation of ceftriaxone 2 g daily as well as oral Flagyl and the doxycycline could be stopped due to ruling out of gonorrhea and Chlamydia. The patient continued to be intermittently hypoxic, particularly with ambulation during the latter part of her hospitalization. The patient had no cardiopulmonary disease on repeat chest x-ray. The patient was deemed to likely have obesity hypoventilation syndrome due to her BMI of 48. The patient' s white blood cell count throughout this time trended down but then went slightly back up to 15.8 on 10/18/17; however, the patient continually felt better. The patient's main concern throughout the last few days of her hospitalization were back pain which responded well to Flexeril and oxycodone. The patient was stable and amenable for discharge on 10/18/[address] Amin in the infusion center and Obstetrics and Gynecology. PHYSICAL EXAM ON DAY OF DISCHARGE: General: The patient is a 37-year-old female who appears stated age, sitting comfortably in the chair in no distress. Vital signs at the time of evaluation: Temperature 98.4, pulse rate 101, respiratory rate 20, oxygen saturation 96% on room air, blood pressure 115/67. HEENT: Head normocephalic. Atraumatic. Sclerae anicteric. No conjunctival injection. Nasal mucosa moist. Oral mucosa moist. No pharyngeal erythema, discharge, or exudate. Neck: Supple, nontender. No lymphadenopathy. No carotid bruits auscultated. No JVD. Cardiac: Regular rate and rhythm. No clicks, murmurs, gallops, rubs. Pulses 2+ bilaterally in dorsalis pedis, posterior tibialis, and radial areas. Trace bilateral lower extremities edema. Respiratory: Clear to auscultation bilaterally. No wheezes, rales, or rhonchi. Good air exchange bilaterally. Abdomen: Soft, nontender, nondistended. Bowel sounds present, normoactive in all 4 quadrants. No hepatosplenomegaly, no abdominal bruits auscultated. No hepatojugular reflux. Genitourinary: No suprapubic tenderness or CVA tenderness. Skin: Clean, dry, intact. No rash. Neuro: Cranial nerves II through XII intact. No focal deficits. Alert and oriented x3. Psychiatric: Pleasant and cooperative. LABORATORY DATA: On day of discharge, white blood cell count 15.8, hemoglobin 10.5. Sodium 136, potassium 3.7, chloride 97, carbon dioxide 32, anion gap 6, BUN 6, creatinine 0.47, glucose 134, calcium 8.4. CRP 135.49. DISCHARGE PLAN: The patient will be discharged to home. The patient will have support through her fiance as well as close followup with the infusion center and the patient should follow up with Dr. Laurita Lema of Obstetrics and Gynecology within 2 weeks for repeat transvaginal ultrasound. The patient will follow up with Chris Queen within 1 week for general medical management to ensure improvement as well as a repeat CBC and BMP. The patient should have repeat CRPs, CBCs and BMPs weekly through the infusion center which will be monitored through Dr. Pierre Amin's office. The patient should follow up with Dr. Amin within 2 weeks. The patient should continue on Flagyl 500 mg t.i.d. and ceftriaxone 2 g daily. The patient should follow up with a credit support specialist as outpatient to assess for pulmonary function testing and to assess for her etiology related to her hypoxia. The patient refused oxygen at discharge, though she did qualify due to decreased oxygen saturation with ambulation. The patient will be continued on cetirizine for her chronic cough. The patient will continue on Flexeril for her back pain and Percocet for her abdominal pain. She should not be on long-term meds. The patient should return to the hospital for alarming symptoms such as severely increased abdominal pain, high fevers, severe shortness of breath, chest pain or other alarming symptoms. The patient plans to move to [place] in a month. She should at that time reestablish with her primary care provider as well as a credit support specialist if she has not seen one to that point. The patient should follow up with a gynecologic oncologist as needed for persistence of her mass despite adequate IV antibiotic treatment. The patient should have a consistent carbohydrate diet. The patient should engage in activities as tolerated. TIME SPENT: Approximately 75 minutes were spent on the discharge, 30 of which was spent utal-ap-xiod with the patient obtaining history and physical and discussing treatment plan. JOSEF FLORES [id number]/[facility] #: [id number] MARTY
== END 2017-10-18 17:20 | disposition home or self-care (01) | DRG 720 ==
LOC: ED 07:13 → MED 12:10 → ICU 10-09 04:40 → MEDTELE 10-10 15:17
PROVIDERS: ADMIT Internal Medicine; ATTEND Obstetrics & Gynecology
PROC: 5A09357 Assistance with Respiratory Ventilation, Less than 24 Consecutive Hours, Continuous Positive Airway Pressure (ICD-10-PCS; principal; 2017-10-11)
DX: A41.9 Sepsis, unspecified organism (principal); J96.01 Acute respiratory failure with hypoxia; E66.2 Morbid (severe) obesity with alveolar hypoventilation; J98.11 Atelectasis; R18.8 Other ascites; E87.1 Hypo-osmolality and hyponatremia; R45.851 Suicidal ideations; Z68.42 Body mass index [BMI] 45.0-49.9, adult; R65.20 Severe sepsis without septic shock; M54.9 Dorsalgia, unspecified; G89.29 Other chronic pain; I10 Essential (primary) hypertension; G43.909 Migraine, unspecified, not intractable, without status migrainosus; E11.65 Type 2 diabetes mellitus with hyperglycemia; N70.93 Salpingitis and oophoritis, unspecified; R16.0 Hepatomegaly, not elsewhere classified; N73.9 Female pelvic inflammatory disease, unspecified; N83.202 Unspecified ovarian cyst, left side; I08.1 Rheumatic disorders of both mitral and tricuspid valves; E83.42 Hypomagnesemia; K59.00 Constipation, unspecified; Z79.4 Long term (current) use of insulin; Z90.49 Acquired absence of other specified parts of digestive tract; Z87.442 Personal history of urinary calculi; Z91.09 Other allergy status, other than to drugs and biological substances; Z83.3 Family history of diabetes mellitus; Z72.89 Other problems related to lifestyle; Z80.8 Family history of malignant neoplasm of other organs or systems; E87.6 Hypokalemia
CPT/HCPCS: 36415; 36600; 71045; 71275; 72195; 74018; 74176; 74181; 76857; 80048; 80053; 80307; 80320; 81003; 81015; 82550; 82803; 83605; 83690; 83735; 83880; 84484; 84702; 85025; 85027; 85379; 85610; 85652; 85730; 86140; 86304; 87040; 87086; 87491; 87591; 93005; 93306; 94640; 94660; 99285; A9270-GY; C8929; G0480; G8978-GP-CK; G8979-GP-CI; J0696; J0744; J1170; J1644; J1885; J1940; J2270; J2405; J2543; J3370; J3475; J3480; Q9967